=== PATIENT | male | born 1965 | race Caucasian/White ===

== ENCOUNTER 2017-07-14 23:21 | Inpatient (IN) | payer OTHER ==
[2017-07-14 23:53] LABS: BASO # 0.1 K/uL (0.0-0.2); BASO % 0.7 % (0.0-2.0); EOS # 0.2 K/uL (0.0-0.7); EOS % 2.3 % (0.0-4.0); HEMATOCRIT 42.4 % (35.0-51.0); LYMPH # 2.1 K/uL (1.0-4.3); LYMPH % 22.7 % (20.0-40.0); MEAN CELL VOLUME 89.8 fL (80.0-94.0); MEAN CORPUSCULAR HEMOGLOBIN 31.5 pg (27.0-31.0); MEAN CORPUSCULAR HGB CONC 35.1 g/dL (33.0-37.0); MEAN PLATELET VOLUME 9.5 fL (7.2-11.7); MONO # 0.8 K/uL (0.0-0.8); MONO % 8.3 % (0.0-10.0); RED CELL DISTRIBUTION WIDTH 12.9 % (11.5-14.5); WHITE BLOOD COUNT 9.1 K/uL (4.8-10.8)
[2017-07-14 23:58] LABS: INR 0.9
[2017-07-15] LABS: CHLORIDE 95 mmol/L (98-107); POTASSIUM 3.6 mmol/L (3.6-5.2); SODIUM 132 mmol/L (132-148)
[2017-07-15 00:02] LABS: BILIRUBIN,TOTAL 0.6 mg/dL (0.2-1.3); CARBON DIOXIDE 24 mmol/L (22-30); GFR AFRICAN-AMERICAN > 60
[2017-07-15 00:03] LABS: ALB/GLOB RATIO 1.1 (1.0-2.1); ALKALINE PHOSPHATASE 80 U/L (38-126); ALT/SGPT 34 U/L (21-72); BLOOD UREA NITROGEN 15 mg/dL (9-20); CALCIUM 9.5 mg/dl (8.6-10.4); TOTAL PROTEIN 8.3 g/dL (6.3-8.3)
[2017-07-15 00:04] LABS: GLUCOSE,RANDOM 445 mg/dL (75-110)
[2017-07-15] MEDS ORDERED: (Novolin R) Insulin Human Regular 100 units/ml vial IV STA ×2 (00:26→01:46)
[2017-07-15] MEDS ORDERED: Nitroglycerin 2% Ointment Foilpak UD TOP STA (00:27)
[2017-07-15 00:33] LABS: AST/SGOT 24 U/L (17-59)
[2017-07-15] MEDS ORDERED: (Novolin R) Insulin Human Regular 100 units/ml vial ONE ×2 (00:38→01:49)
[2017-07-15] MEDS ORDERED: Nitroglycerin 2% Ointment Foilpak UD TOP ONE (00:39)
--- NOTE | 2017-07-15 00:45 | C.PDOC ---
Time Seen by Provider: 07/14/17 23:30 Chief Complaint (Nursing): Chest Pain History Per: Patient, Family Onset/Duration Of Symptoms: Days (1) Current Symptoms Are (Timing): Worse Severity: Moderate Quality: Burning, Tightness, "Pain" Associated Symptoms: Diaphoresis Modifying Factors: Other Indicated Below Nitro Therapy Administered: 3, Per ED, Partial Relief Additional History Per: Prior Records Past Medical History Reviewed: Historical Data, Nursing Documentation, Vital Signs Vital Signs: Last Vital Signs Temp 98 F 07/14/17 23:25 Pulse 85 07/15/17 00:14 Resp 18 07/15/17 00:14 BP 158/97 H 07/15/17 00:14 Pulse Ox 98 07/15/17 00:48 - Medical History PMH: Diabetes, HTN, Hypercholesterolemia, Hypothyroidism Family History: States: Unknown Family Hx - Social History Hx Tobacco Use: No Hx Alcohol Use: Yes Hx Substance Use: No - Immunization History Hx Tetanus Toxoid Vaccination: No Hx Influenza Vaccination: No Hx Pneumococcal Vaccination: No Review Of Systems Except As Marked, All Systems Reviewed And Found Negative. Constitutional: Positive for: Sweats. Negative for: Fever Cardiovascular: Positive for: Chest Pain Respiratory: Negative for: Hemoptysis Gastrointestinal: Negative for: Vomiting, Abdominal Pain Musculoskeletal: Negative for: Neck Pain, Back Pain, Leg Pain Skin: Negative for: Rash Neurological: Negative for: Weakness, Numbness Physical Exam - Physical Exam Appears: In Acute Distress (mild) Skin: Normal Color, Warm, Diaphoretic Head: Atraumatic, Normacephalic Eye(s): bilateral: Normal Inspection, PERRL, EOMI Neck: Normal ROM, Supple Cardiovascular: Rhythm Regular Respiratory: Normal Breath Sounds, No Accessory Muscle Use Gastrointestinal/Abdominal: Soft, No Tenderness Back: No CVA Tenderness Extremity: Normal ROM, No Pedal Edema, No Calf Tenderness Neurological/Psych: Oriented x3, Normal Motor, Normal Sensation ED Course And Treatment - Laboratory Results Result Diagrams: 07/14/17 23:47 07/14/17 23:47 Lab Interpretation: Abnormal Interpretation Of Abnormal: Hyperglycemia ECG: Interpreted By Me, Viewed By Me ECG Rhythm: Sinus Rhythm, Nonspecific Changes Rate From EC O2 Sat by Pulse Oximetry: 98 Pulse Ox Interpretation: Normal - Radiology CXR: Interpreted by Me, Viewed By Me CXR Interpretation: Yes: No Acute Disease, Heart Size (wnl), Other (rotated) Progress - Interventions Interventions:: Observation, Oxygen - Medications Administered Oral: Aspirin Intravenous: H-2 carlin, Other (Insulin) - Data Reviewed Data Reviewed: Lab, Diagnostic imaging, EKG, Old records - Patient Status Patient status: Mostly improved - Critical Care Citical Care: Excluding Proc Time Critical Care Time: 45 minutes - Continuity of Care Discussed patient case with:: Patient, Family-HIPPA compliant, ED Nurse Disposition Counseled Patient/Family Regarding: Studies Performed, Diagnosis - Disposition Disposition Time: 01:00 Condition: GUARDED - Clinical Impression Clinical Impression: Chest pain, Uncontrolled hypertension, Uncontrolled diabetes mellitus with hyperglycemia Physician Patient Turnover Patient Signed Over To: Jose Alfredo Steen Handoff Comments: pending call back from Dr. Blackburn for admission.
--- NOTE | 2017-07-15 12:46 | RAD ---
PROCEDURE: CHEST RADIOGRAPH, 1 VIEW HISTORY: chest pain COMPARISON: None available. FINDINGS: LUNGS: No evidence of focal infiltrate or consolidation in the lungs. PLEURA: No pneumothorax or pleural fluid seen. CARDIOVASCULAR: Normal. OSSEOUS STRUCTURES: No significant abnormalities. VISUALIZED UPPER ABDOMEN: Normal. OTHER FINDINGS: None. IMPRESSION: No active disease.
[2017-07-15] MEDS ORDERED: Nitroglycerin 2% Ointment Foilpak UD TOP PRN (13:18)
--- NOTE | 2017-07-15 13:37 | CP.PCM.HP ---
History of Present Illness - History of Present Illness History of Present Illness: Chief: Chest pain. History of present illness: 50-year-old male but he still had diabetes, hypertension, hypercholesterolemia, history of hyperactive thyroidism, status post radioactive iodine treatment, now hypothyroidism on treatment. Patient started having chest pain 4 days ago, epigastric in origin, pain was persistently noted, gradually got worse until yesterday. Last night the patient was not able to tolerate the pain, the pain was epigastric in area, radiating to the chest. Also to the left shoulder. Pain was excruciating, associated with the chest tightness on the shortness of breath. Patient because of the worsening pain, came to the emergency room last night. In the emergency room, patient was evaluated, given nitroglycerin, pain relieved. Patient also had an episode of sweating, palpitation. He did not have any dizziness. Medical history: Hypothyroidism, hypertension, hypercholesteremia, diabetes. Allergy: History of allergic to methimazole. Family history: Father had a heart disease. Mother with uterine cancer. Siblings are healthy. SOCIAL HISTORY: Drinks socially. Nonsmoker. Current medications: Levothyroxine 137 g Losartan. Hydrochlorothiazide. Metformin Glimepiride. invokana Review of system: Denies any headache, chest tightness, shortness of breath, sweating noted. No GI symptoms. On examination: Vital signs stable. Chest good air entry. Regular heart tone, nontender abdomen. No pedal edema. Labs reviewed. Mild elevation of the CPK-MB noted. EKG nonspecific. Assessment at admission: 51-year-old male with a history of diabetes, hypertension, hypercholesteremia, hypothyroidism, status post iodine radiation treatment for hyperactive thyroidism. Now admitted with chest pain, unstable angina likely be I advised the patient to stay, beta blockers, aspirin, antiplatelets, DVT prophylaxis. Cardiology evaluation. Patient may need angiogram. Given the high risk patient high risk for heart disease. Will follow the patient. Present on Admission - Present on Admission Any Indicators Present on Admission: No History of DVT/PE: No History of Uncontrolled Diabetes: No Urinary Catheter: No Decubitus Ulcer Present: No Past Patient History - Past Medical History & Family History Past Medical History?: Yes - Past Social History Smoking Status: Former Smoker - CARDIAC Hx Cardiac Disorders: Yes Hx Hypercholesterolemia: Yes Hx Hypertension: Yes - PULMONARY Hx Respiratory Disorders: No - NEUROLOGICAL Hx Neurological Disorder: No - HEENT Hx HEENT Problems: No - RENAL Hx Chronic Kidney Disease: No - ENDOCRINE/METABOLIC Hx Endocrine Disorders: Yes Hx Diabetes Mellitus Type 2: Yes Hx Hypothyroidism: Yes - HEMATOLOGICAL/ONCOLOGICAL Hx Blood Disorders: No - INTEGUMENTARY Hx Dermatological Problems: No - MUSCULOSKELETAL/RHEUMATOLOGICAL Hx Musculoskeletal Disorders: No Hx Falls: No - GASTROINTESTINAL Hx Gastrointestinal Disorders: No - GENITOURINARY/GYNECOLOGICAL Hx Genitourinary Disorders: No - PSYCHIATRIC Hx Psychophysiologic Disorder: No Hx Substance Use: No - SURGICAL HISTORY Hx Surgeries: Yes Hx Appendectomy: Yes Other/Comment: nuclear med to thyroid - ANESTHESIA Hx Anesthesia: Yes Hx Anesthesia Reactions: No Hx Malignant Hyperthermia: No Has any member of the family had a problem w/ anesthesia?: No Meds Allergies/Adverse Reactions: Allergies Allergy/AdvReac Type Severity Reaction Status Date / Time No Known Allergies Allergy Unverified 07/14/17 23:29 Results - Vital Signs Recent Vital Signs: Last Vital Signs Temp 98.3 F 07/15/17 08:00 Pulse 68 07/15/17 08:00 Resp 16 07/15/17 08:00 BP 124/80 07/15/17 08:00 Pulse Ox 94 L 07/15/17 08:00 - Labs Result Diagrams: 07/14/17 23:47 07/14/17 23:47 Labs: Laboratory Results - last 24 hr 07/14/17 07/14/17 07/14/17 23:47 23:47 23:47 WBC 9.1 RBC 4.73 Hgb 14.9 Hct 42.4 MCV 89.8 MCH 31.5 H MCHC 35.1 RDW 12.9 Plt Count 223 MPV 9.5 Neut % (Auto) 66.0 Lymph % (Auto) 22.7 [place] % (Auto) 8.3 Eos % (Auto) 2.3 Baso % (Auto) 0.7 Neut # 6.0 Lymph # 2.1 [place] # 0.8 Eos # 0.2 Baso # 0.1 PT 10.4 INR 0.9 APTT 33 D-Dimer, Quantitative Sodium 132 Potassium 3.6 Chloride 95 L Carbon Dioxide 24 Anion Gap 17 BUN 15 Creatinine 0.6 L Est GFR ( Amer) > 60 Est GFR (Non-Af Amer) > 60 POC Glucose (mg/dL) Random Glucose 445 H* D Calcium 9.5 Total Bilirubin 0.6 AST 24 ALT 34 Alkaline Phosphatase 80 CK-MB (Mass) Troponin I 0.0380 NT-Pro-B Natriuret Pep 105 Total Protein 8.3 Albumin 4.4 Globulin 3.9 Albumin/Globulin Ratio 1.1 TSH 3rd Generation 07/15/17 07/15/17 07/15/17 01:43 02:22 05:22 WBC RBC Hgb Hct MCV MCH MCHC RDW Plt Count MPV Neut % (Auto) Lymph % (Auto) [place] % (Auto) Eos % (Auto) Baso % (Auto) Neut # Lymph # [place] # Eos # Baso # PT INR APTT D-Dimer, Quantitative Sodium Potassium Chloride Carbon Dioxide Anion Gap BUN Creatinine Est GFR ( Amer) Est GFR (Non-Af Amer) POC Glucose (mg/dL) 346 H 212 H 326 H Random Glucose Calcium Total Bilirubin AST ALT Alkaline Phosphatase CK-MB (Mass) Troponin I NT-Pro-B Natriuret Pep Total Protein Albumin Globulin Albumin/Globulin Ratio [facility] 3rd Generation 07/15/17 07/15/17 07/15/17 06:12 06:15 06:38 WBC RBC Hgb Hct MCV MCH MCHC RDW Plt Count MPV Neut % (Auto) Lymph % (Auto) [place] % (Auto) Eos % (Auto) Baso % (Auto) Neut # Lymph # [place] # Eos # Baso # PT INR APTT D-Dimer, Quantitative < 200 Sodium Potassium Chloride Carbon Dioxide Anion Gap BUN Creatinine Est GFR ( Amer) Est GFR (Non-Af Amer) POC Glucose (mg/dL) Random Glucose Calcium Total Bilirubin AST ALT Alkaline Phosphatase CK-MB (Mass) 10.9 H Troponin I NT-Pro-B Natriuret Pep Total Protein Albumin Globulin Albumin/Globulin Ratio [facility] 3rd Generation 12.60 H 07/15/17 07/15/17 07:30 11:56 WBC RBC Hgb Hct MCV MCH MCHC RDW Plt Count MPV Neut % (Auto) Lymph % (Auto) [place] % (Auto) Eos % (Auto) Baso % (Auto) Neut # Lymph # [place] # Eos # Baso # PT INR APTT D-Dimer, Quantitative Sodium Potassium Chloride Carbon Dioxide Anion Gap BUN Creatinine Est GFR ( Amer) Est GFR (Non-Af Amer) POC Glucose (mg/dL) 309 H 287 H Random Glucose Calcium Total Bilirubin AST ALT Alkaline Phosphatase CK-MB (Mass) Troponin I NT-Pro-B Natriuret Pep Total Protein Albumin Globulin Albumin/Globulin Ratio TSH 3rd Generation
[2017-07-15] MEDS: (Novolin R) Insulin Human Regular 100 units/ml vial SC SCH ×2 (17:09→22:28)
--- NOTE | 2017-07-15 20:09 | CP.PCM.CON ---
History of Present Illness - History of Present Illness History of Present Illness: Chief Complaint: Chest Pain History Per: Patient, Family Onset/Duration Of Symptoms: Days (1) Current Symptoms Are (Timing): Worse Severity: Moderate Quality: Burning, Tightness, "Pain" Associated Symptoms: Diaphoresis Modifying Factors: Other Indicated Below Nitro Therapy Administered: Partial Relief Additional History Per: Prior Records Past Medical History Reviewed: Historical Data, Nursing Documentation, Vital Signs Vital Signs: Last Vital Signs Temp 98 F 07/14/17 23:25 Pulse 85 07/15/17 00:14 Resp 18 07/15/17 00:14 BP 158/97 H 07/15/17 00:14 Pulse Ox 98 07/15/17 00:48 - Medical History PMH: Diabetes, HTN, Hypercholesterolemia, Hypothyroidism Family History: States: Unknown Family Hx - Social History Hx Tobacco Use: No Hx Alcohol Use: Yes Hx Substance Use: No - Immunization History Hx Tetanus Toxoid Vaccination: No Hx Influenza Vaccination: No Hx Pneumococcal Vaccination: No Review Of Systems Except As Marked, All Systems Reviewed And Found Negative. Constitutional: Positive for: Sweats. Negative for: Fever Cardiovascular: Positive for: Chest Pain Respiratory: Negative for: Hemoptysis Gastrointestinal: Negative for: Vomiting, Abdominal Pain Musculoskeletal: Negative for: Neck Pain, Back Pain, Leg Pain Skin: Negative for: Rash Neurological: Negative for: Weakness, Numbness Physical Exam - Physical Exam Appears: In Acute Distress (mild) Skin: Normal Color, Warm, Diaphoretic Head: Atraumatic, Normacephalic Eye(s): bilateral: Normal Inspection, PERRL, EOMI Neck: Normal ROM, Supple Cardiovascular: Rhythm Regular Respiratory: Normal Breath Sounds, No Accessory Muscle Use Gastrointestinal/Abdominal: Soft, No Tenderness Back: No CVA Tenderness Extremity: Normal ROM, No Pedal Edema, No Calf Tenderness Neurological/Psych: Oriented x3, Normal Motor, Normal Sensation Past Patient History - Past Medical History & Family History Past Medical History?: Yes - Past Social History Smoking Status: Former Smoker - CARDIAC Hx Cardiac Disorders: Yes Hx Hypercholesterolemia: Yes Hx Hypertension: Yes - PULMONARY Hx Respiratory Disorders: No - NEUROLOGICAL Hx Neurological Disorder: No - HEENT Hx HEENT Problems: No - RENAL Hx Chronic Kidney Disease: No - ENDOCRINE/METABOLIC Hx Endocrine Disorders: Yes Hx Diabetes Mellitus Type 2: Yes Hx Hypothyroidism: Yes - HEMATOLOGICAL/ONCOLOGICAL Hx Blood Disorders: No - INTEGUMENTARY Hx Dermatological Problems: No - MUSCULOSKELETAL/RHEUMATOLOGICAL Hx Musculoskeletal Disorders: No Hx Falls: No - GASTROINTESTINAL Hx Gastrointestinal Disorders: No - GENITOURINARY/GYNECOLOGICAL Hx Genitourinary Disorders: No - PSYCHIATRIC Hx Psychophysiologic Disorder: No Hx Substance Use: No - SURGICAL HISTORY Hx Surgeries: Yes Hx Appendectomy: Yes Other/Comment: nuclear med to thyroid - ANESTHESIA Hx Anesthesia: Yes Hx Anesthesia Reactions: No Hx Malignant Hyperthermia: No Has any member of the family had a problem w/ anesthesia?: No Meds Allergies/Adverse Reactions: Allergies Allergy/AdvReac Type Severity Reaction Status Date / Time No Known Allergies Allergy Unverified 07/14/17 23:29 - Medications Medications: Current Medications Aspirin (Ecotrin) 81 mg PO DAILY [facility] Glimepiride (Amaryl) 1 mg PO DAILY [facility] Last Admin: 07/15/17 10:03 Dose: 1 mg Heparin Sodium (Porcine) (Heparin) 5,000 units SC Q8 [facility] Hydrochlorothiazide (Microzide) 12.5 mg PO DAILY [facility] Last Admin: 07/15/17 10:03 Dose: 12.5 mg Insulin Human Regular (Novolin R) 0 unit SC ACHS [facility] PRN Reason: Protocol Last Admin: 07/15/17 17:09 Dose: 3 unit Levothyroxine Sodium (Levothroid) 137 mcg PO DAILY@0630 [facility] Last Admin: 07/15/17 06:41 Dose: 137 mcg Losartan Potassium (Cozaar) 50 mg PO DAILY [facility] Last Admin: 07/15/17 10:03 Dose: 50 mg Metoprolol Tartrate (Lopressor) 25 mg PO BID [facility] Last Admin: 07/15/17 17:10 Dose: 25 mg Nitroglycerin (Nitro-Bid 2% Oint) 1 ea TOP Q6 PRN PRN Reason: Shortness of Breath Last Admin: 07/15/17 17:58 Dose: 1 ea Rosuvastatin Calcium (Crestor) 10 mg PO HS [facility] Results - Vital Signs Recent Vital Signs: Last Vital Signs Temp 98.2 F 07/15/17 16:00 Pulse 65 07/15/17 18:00 Resp 16 07/15/17 08:00 BP 125/87 07/15/17 17:10 Pulse Ox 94 L 07/15/17 08:00 - Labs Result Diagrams: 07/14/17 23:47 07/14/17 23:47 Labs: Laboratory Results - last 24 hr 07/14/17 07/14/17 07/14/17 23:47 23:47 23:47 WBC 9.1 RBC 4.73 Hgb 14.9 Hct 42.4 MCV 89.8 MCH 31.5 H MCHC 35.1 RDW 12.9 Plt Count 223 MPV 9.5 Neut % (Auto) 66.0 Lymph % (Auto) 22.7 Long % (Auto) 8.3 Eos % (Auto) 2.3 Baso % (Auto) 0.7 Neut # 6.0 Lymph # 2.1 Long # 0.8 Eos # 0.2 Baso # 0.1 PT 10.4 INR 0.9 APTT 33 D-Dimer, Quantitative Sodium 132 Potassium 3.6 Chloride 95 L Carbon Dioxide 24 Anion Gap 17 BUN 15 Creatinine 0.6 L Est GFR ( Amer) > 60 Est GFR (Non-Af Amer) > 60 POC Glucose (mg/dL) Random Glucose 445 H* D Calcium 9.5 Total Bilirubin 0.6 AST 24 ALT 34 Alkaline Phosphatase 80 CK-MB (Mass) Troponin I 0.0380 NT-Pro-B Natriuret Pep 105 Total Protein 8.3 Albumin 4.4 Globulin 3.9 Albumin/Globulin Ratio 1.1 TSH 3rd Generation 07/15/17 07/15/17 07/15/17 01:43 02:22 05:22 WBC RBC Hgb Hct MCV MCH MCHC RDW Plt Count MPV Neut % (Auto) Lymph % (Auto) Long % (Auto) Eos % (Auto) Baso % (Auto) Neut # Lymph # Long # Eos # Baso # PT INR APTT D-Dimer, Quantitative Sodium Potassium Chloride Carbon Dioxide Anion Gap BUN Creatinine Est GFR ( Amer) Est GFR (Non-Af Amer) POC Glucose (mg/dL) 346 H 212 H 326 H Random Glucose Calcium Total Bilirubin AST ALT Alkaline Phosphatase CK-MB (Mass) Troponin I NT-Pro-B Natriuret Pep Total Protein Albumin Globulin Albumin/Globulin Ratio TSH 3rd Generation 07/15/17 07/15/17 07/15/17 06:12 06:15 06:38 WBC RBC Hgb Hct MCV MCH MCHC RDW Plt Count MPV Neut % (Auto) Lymph % (Auto) Long % (Auto) Eos % (Auto) Baso % (Auto) Neut # Lymph # Long # Eos # Baso # PT INR APTT D-Dimer, Quantitative < 200 Sodium Potassium Chloride Carbon Dioxide Anion Gap BUN Creatinine Est GFR ( Amer) Est GFR (Non-Af Amer) POC Glucose (mg/dL) Random Glucose Calcium Total Bilirubin AST ALT Alkaline Phosphatase CK-MB (Mass) 10.9 H Troponin I NT-Pro-B Natriuret Pep Total Protein Albumin Globulin Albumin/Globulin Ratio TSH 3rd Generation 12.60 H 07/15/17 07/15/17 07/15/17 07:30 11:56 16:10 WBC RBC Hgb Hct MCV MCH MCHC RDW Plt Count MPV Neut % (Auto) Lymph % (Auto) Long % (Auto) Eos % (Auto) Baso % (Auto) Neut # Lymph # Long # Eos # Baso # PT INR APTT D-Dimer, Quantitative Sodium Potassium Chloride Carbon Dioxide Anion Gap BUN Creatinine Est GFR ( Amer) Est GFR (Non-Af Amer) POC Glucose (mg/dL) 309 H 287 H 202 H Random Glucose Calcium Total Bilirubin AST ALT Alkaline Phosphatase CK-MB (Mass) Troponin I NT-Pro-B Natriuret Pep Total Protein Albumin Globulin Albumin/Globulin Ratio TSH 3rd Generation Assessment & Plan - Assessment and Plan (Free Text) Assessment: 1. Unstable angina 2. DM 2 3. HTN 4. Hyperlipidemia For cardiac cath tomorrow afternoon
[2017-07-16 08:16] LABS: BASO # 0.1 K/uL (0.0-0.2); BASO % 0.6 % (0.0-2.0); EOS # 0.2 K/uL (0.0-0.7); EOS % 1.8 % (0.0-4.0); HEMATOCRIT 42.7 % (35.0-51.0); LYMPH # 2.1 K/uL (1.0-4.3); MEAN CELL VOLUME 89.5 fL (80.0-94.0); MEAN CORPUSCULAR HEMOGLOBIN 31.3 pg (27.0-31.0); MEAN PLATELET VOLUME 9.2 fL (7.2-11.7); MONO # 0.8 K/uL (0.0-0.8); MONO % 8.5 % (0.0-10.0); RED CELL DISTRIBUTION WIDTH 13.3 % (11.5-14.5); WHITE BLOOD COUNT 8.9 K/uL (4.8-10.8)
[2017-07-16 08:30] LABS: CHLORIDE 95 mmol/L (98-107)
[2017-07-16 08:31] LABS: POTASSIUM 3.6 mmol/L (3.6-5.2); SODIUM 131 mmol/L (132-148)
[2017-07-16 08:33] LABS: ALB/GLOB RATIO 1.2 (1.0-2.1); ALKALINE PHOSPHATASE 76 U/L (38-126); AST/SGOT 34 U/L (17-59); BLOOD UREA NITROGEN 17 mg/dL (9-20); CARBON DIOXIDE 26 mmol/L (22-30); GFR AFRICAN-AMERICAN > 60; GLUCOSE,RANDOM 253 mg/dL (75-110); TOTAL PROTEIN 7.6 g/dL (6.3-8.3)
[2017-07-16 08:34] LABS: ALT/SGPT 31 U/L (21-72); CALCIUM 9.1 mg/dl (8.6-10.4); MAGNESIUM 1.7 mg/dL (1.6-2.3); PHOSPHOROUS 2.9 mg/dL (2.5-4.5)
--- NOTE | 2017-07-16 08:35 | CP.PCM.PN ---
Subjective - Date & Time of Evaluation Date of Evaluation: 07/16/17 Time of Evaluation: 08:34 - Subjective Subjective: Patient has no chest pain today. He denies any nausea vomiting. Patient was seen by environmental science professor yesterday. Review of system: No headache or visual symptom mild supporting noted, elevated blood pressure noted, other systems reviewed On examination: Vital signs stable. Chest good air entry bilaterally regular heart sounds nontender abdomen no pedal edema COURT DEPUTY alert awake oriented 3 no functional neurological deficit Labs reviewed. Cardiac enzymes are negative Echocardiogram pending Assessment and recommendation: 51-year-old male with a history of diabetes hypertension hypercholesteremia hypothyroidism. Clinical stable at this time. For angiogram today. If it is negative patient can be discharged home today. And will follow the patient. Objective - Vital Signs/Intake and Output Vital Signs (last 24 hours): Temp Pulse Resp BP Pulse Ox 97.8 F 87 19 148/99 H 99 07/16/17 08:27 07/16/17 08:27 07/16/17 08:27 07/16/17 08:27 07/16/17 08:27 Intake and Output: 07/16/17 07/16/17 06:59 18:59 Intake Total 100 Output Total 300 Balance -200 - Medications Medications: Current Medications Aspirin (Ecotrin) 81 mg PO DAILY [facility] Glimepiride (Amaryl) 1 mg PO DAILY [facility] Last Admin: 07/15/17 10:03 Dose: 1 mg Heparin Sodium (Porcine) (Heparin) 5,000 units SC Q8 [facility] Last Admin: 07/16/17 06:54 Dose: 5,000 units Hydrochlorothiazide (Microzide) 12.5 mg PO DAILY [facility] Last Admin: 07/15/17 10:03 Dose: 12.5 mg Insulin Human Regular (Novolin R) 0 unit SC ACHS [facility] PRN Reason: Protocol Last Admin: 07/15/17 22:28 Dose: Not Given Levothyroxine Sodium (Levothroid) 137 mcg PO DAILY@0630 [facility] Last Admin: 07/16/17 06:55 Dose: 137 mcg Losartan Potassium (Cozaar) 50 mg PO DAILY [facility] Last Admin: 07/15/17 10:03 Dose: 50 mg Metoprolol Tartrate (Lopressor) 25 mg PO BID [facility] Last Admin: 07/15/17 17:10 Dose: 25 mg Nitroglycerin (Nitro-Bid 2% Oint) 1 ea TOP Q6 PRN PRN Reason: Shortness of Breath Last Admin: 07/15/17 17:58 Dose: 1 ea Rosuvastatin Calcium (Crestor) 10 mg PO HS [facility] Last Admin: 07/15/17 23:00 Dose: 10 mg - Labs Labs: 07/16/17 08:02 07/16/17 08:02 PT 10.4 SECONDS (9.7-12.2) 07/14/17 23:47 INR 0.9 07/14/17 23:47 APTT 33 SECONDS (21-34) 07/14/17 23:47
[2017-07-16] MEDS: (Novolin R) Insulin Human Regular 100 units/ml vial SC SCH ×4 (10:36→21:42)
[2017-07-16] MEDS ORDERED: Midazolam 2 MG/2 ML VIAL ONE (10:55)
[2017-07-16] MEDS ORDERED: Nitroglycerin 50mg in D5W 50 MG/250 ML BOTTLE IV ONE (11:00)
[2017-07-16] MEDS ORDERED: Heparin25000 units/250ml 1/2NS 25,000 UNITS/250 ML BAG IV ONE (11:29)
[2017-07-16] MEDS ORDERED: Heparin25000 units/250ml 1/2NS 25,000 UNITS/250 ML BAG IV PRN (11:53)
--- NOTE | 2017-07-17 03:05 | CARD ---
APPROVED REPORT EXAM: Two-dimensional and M-mode echocardiogram with Doppler and color Doppler. Other Information Quality : TDSRhythm : NSR INDICATION CAD Chest Pain RISK FACTORS Hypertension Diabetes 2D DIMENSIONS IVSd1.5 (0.7-1.1cm)LVDd3.9 (3.9-5.9cm) PWd1.2 (0.7-1.1cm)LVDs2.6 (2.5-4.0cm) FS (%) 33.1 %LVEF (%)54.0 (>50%) M-Mode DIMENSIONS Left Atrium (MM)3.78 (2.5-4.0cm)Aortic Root3.03 (2.2-3.7cm) Aortic Cusp Exc.2.22 (1.5-2.0cm) Mitral Valve MV E Rkenfosp87.5cm/sMV A Jrkapycf24.1cm/sE/A ratio0.8 TDI E/Lateral E'0.0E/Medial E'0.0 Tricuspid Valve TR Peak Pjnshnhl389zj/sTR Peak Gr.[id number] LEFT VENTRICLE The left ventricle is normal size. There is mild to moderate concentric left ventricular hypertrophy. Left ventricle systolic function is normal. The Ejection Fraction is 50-55%. There is normal LV segmental wall motion. The left ventricular diastolic function is abnormal. Transmitral Doppler flow pattern is Grade I-abnormal relaxation pattern. No left ventricle thrombus noted on this study. RIGHT VENTRICLE The right ventricle is normal size. The right ventricular systolic function is normal. ATRIA The left atrial size is normal. The right atrium size is normal. AORTIC VALVE The aortic valve is mildly calcified. The aortic valve is probably trileaflet. No aortic regurgitation is present. There is no aortic valvular stenosis. There is no aortic valvular vegetation. MITRAL VALVE Mitral annular calcification is mild. The mitral valve leaflets are calcified. There is no evidence of mitral valve prolapse. There is no mitral valve stenosis. There is no mitral valve regurgitation noted. TRICUSPID VALVE The tricuspid valve is normal in structure. There is trace to mild tricuspid regurgitation. Right ventricular systolic pressure is estimated at less than 30 mmHg. There is no pulmonary hypertension. There is no tricuspid valve prolapse or vegetation. There is no tricuspid valve stenosis. PULMONIC VALVE The pulmonic valve is not well visualized. There is no pulmonic valvular regurgitation. GREAT VESSELS The aortic root is normal in size. The IVC is normal in size and collapses >50% with inspiration. PERICARDIAL EFFUSION There is no pericardial effusion. There is no pleural effusion. <Conclusion> There is mild to moderate concentric left ventricular hypertrophy. Left ventricle systolic function is normal. The Ejection Fraction is 50-55%. The left ventricular diastolic function is abnormal. The right ventricle is normal size. The right ventricular systolic function is normal. The left atrial size is normal. The right atrium size is normal. There is trace to mild tricuspid regurgitation.
[2017-07-17 06:03] LABS: BASO # 0.1 K/uL (0.0-0.2); BASO % 0.6 % (0.0-2.0); EOS # 0.2 K/uL (0.0-0.7); EOS % 1.7 % (0.0-4.0); HEMATOCRIT 38.1 % (35.0-51.0); LYMPH # 2.5 K/uL (1.0-4.3); LYMPH % 27.8 % (20.0-40.0); MEAN CELL VOLUME 88.8 fL (80.0-94.0); MEAN CORPUSCULAR HEMOGLOBIN 31.5 pg (27.0-31.0); MEAN CORPUSCULAR HGB CONC 35.4 g/dL (33.0-37.0); MEAN PLATELET VOLUME 9.2 fL (7.2-11.7); MONO # 0.7 K/uL (0.0-0.8); MONO % 8.1 % (0.0-10.0); NRBC % 0.1 % (0.0-2.0); RED CELL DISTRIBUTION WIDTH 13.1 % (11.5-14.5); WHITE BLOOD COUNT 9.2 K/uL (4.8-10.8)
[2017-07-17 06:17] LABS: CHLORIDE 97 mmol/L (98-107); POTASSIUM 3.3 mmol/L (3.6-5.2); SODIUM 132 mmol/L (132-148)
[2017-07-17 06:19] LABS: ALB/GLOB RATIO 1.2 (1.0-2.1); ALKALINE PHOSPHATASE 70 U/L (38-126); ALT/SGPT 30 U/L (21-72); AST/SGOT 22 U/L (17-59); BILIRUBIN,TOTAL 0.7 mg/dL (0.2-1.3); BLOOD UREA NITROGEN 12 mg/dL (9-20); CARBON DIOXIDE 24 mmol/L (22-30); GFR AFRICAN-AMERICAN > 60; GLUCOSE,RANDOM 212 mg/dL (75-110); TOTAL PROTEIN 6.8 g/dL (6.3-8.3)
[2017-07-17 06:20] LABS: CALCIUM 8.6 mg/dl (8.6-10.4); MAGNESIUM 1.8 mg/dL (1.6-2.3); PHOSPHOROUS 2.9 mg/dL (2.5-4.5)
[2017-07-17] MEDS ORDERED: Potassium Chloride 20 mEq ER Tab PO STA (08:40)
[2017-07-17] MEDS: (Novolin R) Insulin Human Regular 100 units/ml vial SC SCH ×4 (09:00→21:54)
[2017-07-17] MEDS ORDERED: Potassium Chloride 20 mEq ER Tab PO SCH (10:00)
--- NOTE | 2017-07-17 16:32 | CP.CCUPN ---
<Lilliam Mazariegos E - Last Filed: 07/17/17 16:26> CCU Subjective - Physician Review Subjective (Free Text): Patient was seen and examined at bedside. Patient was resting comfortably in chair. Patient states that he is doing well. Patient denies chest pain, SOB, palpitations, diaphoresis, fever, chills, nausea and vomiting. Patient is aware that he is have a PCI at [facility]. CCU Objective - Vital Signs / Intake & Output Vital Signs (Last 4 hours): Vital Signs Pulse Resp BP Pulse Ox 07/17/17 13:00 62 9 L 100 07/17/17 12:57 64 18 145/92 H 97 Intake and Output (Last 8hrs): Intake & Output 07/17/17 07/17/17 07/17/17 06:59 14:59 22:59 Intake Total 235.2 855.7 Output Total 600 1000 Balance -364.8 -144.3 Intake: Intake, IV Amount 95.2 35.7 Left Hand 95.2 35.7 Oral 140 820 Output: Urine 600 1000 Urine, Voided 600 1000 Other: # Bowel Movements 0 - Physical Exam Head: Positive for: Atraumatic, Normocephalic Extroacular Muscles: Positive for: EOMI Mouth: Positive for: Moist Mucous Membranes Respiratory/Chest: Positive for: Clear to Auscultation, Good Air Exchange. Negative for: Respiratory Distress, Accessory Muscle Use Cardiovascular: Positive for: Regular Rate and Rhythm, Normal S1, S2 Abdomen: Positive for: Normal Bowel Sounds. Negative for: Tenderness, Distention Upper Extremity: Positive for: Normal Inspection. Negative for: Edema Lower Extremity: Positive for: Normal Inspection. Negative for: Edema Neurological: Positive for: GCS=15, Speech Normal Skin: Positive for: Normal Color Psychiatric: Positive for: Alert, Oriented x 3 - Medications Active Medications: Active Medications Generic Name Dose Route Start Last Admin Trade Name Freq PRN Reason Stop Dose Admin Aspirin 81 mg 07/16/17 10:00 07/17/17 09:33 Ecotrin PO 81 mg DAILY HERB Administration Clopidogrel Bisulfate 75 mg 07/17/17 10:00 07/17/17 09:32 Plavix PO 75 mg DAILY HERB Administration Glimepiride 1 mg 07/15/17 10:00 07/17/17 10:26 Amaryl PO Not Given DAILY HERB Heparin Sodium (Porcine) 5,000 units 07/15/17 22:00 07/16/17 06:54 Heparin SC 5,000 units Q8 HERB Administration Hydrochlorothiazide 12.5 mg 07/15/17 10:00 07/17/17 09:36 Microzide PO 12.5 mg DAILY HERB Administration Heparin Sodium/Sodium Chloride 25,000 units in 250 mls @ 11.43 mls/hr 11:53 07/16/17 12:40 Heparin 48441 Units/250ml 1/2 Normal Saline IV 12.49 u/kg/hr .[id number] PRN 11.9 mls/hr PROTOCOL Administration Protocol 12 U/KG/HR Insulin Human Regular 0 unit 07/15/17 16:30 07/17/17 13:00 Novolin R SC Not Given ACHS [facility] Protocol Levothyroxine Sodium 137 mcg 07/15/17 06:30 07/17/17 08:00 Levothroid PO 137 mcg DAILY@0630 HERB Administration Losartan Potassium 50 mg 07/15/17 10:00 07/17/17 09:33 Cozaar PO 50 mg DAILY HERB Administration Metoprolol Tartrate 25 mg 07/15/17 18:00 07/17/17 09:32 Lopressor PO 25 mg BID HERB Administration Nitroglycerin 1 ea 07/15/17 13:18 07/15/17 17:58 Nitro-Bid 2% Oint TOP 1 ea Q6 PRN Administration Shortness of Breath Rosuvastatin Calcium 40 mg 07/16/17 11:53 07/16/17 21:40 Crestor PO 40 mg HS HERB Administration - Patient Studies Lab Studies: Lab Studies 07/17/17 07/17/17 07/17/17 Range/Units 13:07 11:36 07:24 WBC (4.8-10.8) K/uL RBC (4.40-5.90) Mil/uL Hgb (12.0-18.0) g/dL Hct (35.0-51.0) % MCV (80.0-94.0) fL MCH (27.0-31.0) pg MCHC (33.0-37.0) g/dL RDW (11.5-14.5) % Plt Count (130-400) K/uL MPV (7.2-11.7) fL Neut % (Auto) (50.0-75.0) % Lymph % (Auto) (20.0-40.0) % [place] % (Auto) (0.0-10.0) % Eos % (Auto) (0.0-4.0) % Baso % (Auto) (0.0-2.0) % Neut # (1.8-7.0) K/uL Lymph # (1.0-4.3) K/uL [place] # (0.0-0.8) K/uL Eos # (0.0-0.7) K/uL Baso # (0.0-0.2) K/uL APTT (21-34) SECONDS Sodium (132-148) mmol/L Potassium (3.6-5.2) mmol/L Chloride (98-107) mmol/L Carbon Dioxide (22-30) mmol/L Anion Gap (10-20) BUN (9-20) mg/dL Creatinine (0.8-1.5) mg/dL Est GFR ( Amer) Est GFR (Non-Af Amer) POC Glucose (mg/dL) 162 H 273 H 264 H (65-110) mg/dL Random Glucose (75-110) mg/dL Calcium (8.6-10.4) mg/dl Phosphorus (2.5-4.5) mg/dL Magnesium (1.6-2.3) mg/dL Total Bilirubin (0.2-1.3) mg/dL AST (17-59) U/L ALT (21-72) U/L Alkaline Phosphatase (38-126) U/L Total Protein (6.3-8.3) g/dL Albumin (3.5-5.0) g/dL Globulin (2.2-3.9) gm/dL Albumin/Globulin Ratio (1.0-2.1) 07/17/17 07/17/17 07/17/17 Range/Units 05:51 05:51 05:51 WBC 9.2 (4.8-10.8) K/uL RBC 4.28 L (4.40-5.90) Mil/uL Hgb 13.5 (12.0-18.0) g/dL Hct 38.1 (35.0-51.0) % MCV 88.8 (80.0-94.0) fL MCH 31.5 H (27.0-31.0) pg MCHC 35.4 (33.0-37.0) g/dL RDW 13.1 (11.5-14.5) % Plt Count 212 (130-400) K/uL MPV 9.2 (7.2-11.7) fL Neut % (Auto) 61.8 (50.0-75.0) % Lymph % (Auto) 27.8 (20.0-40.0) % [place] % (Auto) 8.1 (0.0-10.0) % Eos % (Auto) 1.7 (0.0-4.0) % Baso % (Auto) 0.6 (0.0-2.0) % Neut # 5.7 (1.8-7.0) K/uL Lymph # 2.5 (1.0-4.3) K/uL [place] # 0.7 (0.0-0.8) K/uL Eos # 0.2 (0.0-0.7) K/uL Baso # 0.1 (0.0-0.2) K/uL APTT 85 H D (21-34) SECONDS Sodium 132 (132-148) mmol/L Potassium 3.3 L (3.6-5.2) mmol/L Chloride 97 L (98-107) mmol/L Carbon Dioxide 24 (22-30) mmol/L Anion Gap 14 (10-20) BUN 12 (9-20) mg/dL Creatinine 0.6 L (0.8-1.5) mg/dL Est GFR ( Amer) > 60 Est GFR (Non-Af Amer) > 60 POC Glucose (mg/dL) (65-110) mg/dL Random Glucose 212 H (75-110) mg/dL Calcium 8.6 (8.6-10.4) mg/dl Phosphorus 2.9 (2.5-4.5) mg/dL Magnesium 1.8 (1.6-2.3) mg/dL Total Bilirubin 0.7 (0.2-1.3) mg/dL AST 22 (17-59) U/L ALT 30 (21-72) U/L Alkaline Phosphatase 70 (38-126) U/L Total Protein 6.8 (6.3-8.3) g/dL Albumin 3.7 (3.5-5.0) g/dL Globulin 3.1 (2.2-3.9) gm/dL Albumin/Globulin Ratio 1.2 (1.0-2.1) 07/17/17 07/16/17 Range/Units 00:23 21:09 WBC (4.8-10.8) K/uL RBC (4.40-5.90) Mil/uL Hgb (12.0-18.0) g/dL Hct (35.0-51.0) % MCV (80.0-94.0) fL MCH (27.0-31.0) pg MCHC (33.0-37.0) g/dL RDW (11.5-14.5) % Plt Count (130-400) K/uL MPV (7.2-11.7) fL Neut % (Auto) (50.0-75.0) % Lymph % (Auto) (20.0-40.0) % [place] % (Auto) (0.0-10.0) % Eos % (Auto) (0.0-4.0) % Baso % (Auto) (0.0-2.0) % Neut # (1.8-7.0) K/uL Lymph # (1.0-4.3) K/uL [place] # (0.0-0.8) K/uL Eos # (0.0-0.7) K/uL Baso # (0.0-0.2) K/uL APTT 78 H D (21-34) SECONDS Sodium (132-148) mmol/L Potassium (3.6-5.2) mmol/L Chloride (98-107) mmol/L Carbon Dioxide (22-30) mmol/L Anion Gap (10-20) BUN (9-20) mg/dL Creatinine (0.8-1.5) mg/dL Est GFR ( Amer) Est GFR (Non-Af Amer) POC Glucose (mg/dL) 241 H (65-110) mg/dL Random Glucose (75-110) mg/dL Calcium (8.6-10.4) mg/dl Phosphorus (2.5-4.5) mg/dL Magnesium (1.6-2.3) mg/dL Total Bilirubin (0.2-1.3) mg/dL AST (17-59) U/L ALT (21-72) U/L Alkaline Phosphatase (38-126) U/L Total Protein (6.3-8.3) g/dL Albumin (3.5-5.0) g/dL Globulin (2.2-3.9) gm/dL Albumin/Globulin Ratio (1.0-2.1) Laboratory Results - last 24 hr 07/16/17 07/17/17 07/17/17 21:09 00:23 05:51 WBC 9.2 RBC 4.28 L Hgb 13.5 Hct 38.1 MCV 88.8 MCH 31.5 H MCHC 35.4 RDW 13.1 Plt Count 212 MPV 9.2 Neut % (Auto) 61.8 Lymph % (Auto) 27.8 [place] % (Auto) 8.1 Eos % (Auto) 1.7 Baso % (Auto) 0.6 Neut # 5.7 Lymph # 2.5 [place] # 0.7 Eos # 0.2 Baso # 0.1 APTT 78 H D Sodium Potassium Chloride Carbon Dioxide Anion Gap BUN Creatinine Est GFR ( Amer) Est GFR (Non-Af Amer) POC Glucose (mg/dL) 241 H Random Glucose Calcium Phosphorus Magnesium Total Bilirubin AST ALT Alkaline Phosphatase Total Protein Albumin Globulin Albumin/Globulin Ratio 07/17/17 07/17/17 07/17/17 05:51 05:51 07:24 WBC RBC Hgb Hct MCV MCH MCHC RDW Plt Count MPV Neut % (Auto) Lymph % (Auto) [place] % (Auto) Eos % (Auto) Baso % (Auto) Neut # Lymph # [place] # Eos # Baso # APTT 85 H D Sodium 132 Potassium 3.3 L Chloride 97 L Carbon Dioxide 24 Anion Gap 14 BUN 12 Creatinine 0.6 L Est GFR ( Amer) > 60 Est GFR (Non-Af Amer) > 60 POC Glucose (mg/dL) 264 H Random Glucose 212 H Calcium 8.6 Phosphorus 2.9 Magnesium 1.8 Total Bilirubin 0.7 AST 22 ALT 30 Alkaline Phosphatase 70 Total Protein 6.8 Albumin 3.7 Globulin 3.1 Albumin/Globulin Ratio 1.2 07/17/17 07/17/17 11:36 13:07 WBC RBC Hgb Hct MCV MCH MCHC RDW Plt Count MPV Neut % (Auto) Lymph % (Auto) [place] % (Auto) Eos % (Auto) Baso % (Auto) Neut # Lymph # [place] # Eos # Baso # APTT Sodium Potassium Chloride Carbon Dioxide Anion Gap BUN Creatinine Est GFR ( Amer) Est GFR (Non-Af Amer) POC Glucose (mg/dL) 273 H 162 H Random Glucose Calcium Phosphorus Magnesium Total Bilirubin AST ALT Alkaline Phosphatase Total Protein Albumin Globulin Albumin/Globulin Ratio Fingerstick Blood Sugar Results: 162 Review of Systems - Constitutional Constitutional: absent: Fever, Chills, Sweats, Weakness - EENT Eyes: absent: Blurred Vision, Change in Vision Ears: absent: Dizziness - Cardiovascular Cardiovascular: absent: Chest Pain, Chest Pain at Rest, Lightheadedness, Palpitations, Syncope - Respiratory Respiratory: absent: Dyspnea - Gastrointestinal Gastrointestinal: absent: Abdominal Pain, Cramping, Nausea, Vomiting - Musculoskeletal Musculoskeletal: absent: Numbness, Tingling - Neurological Neurological: absent: Dizziness, Headaches, Syncope, Tingling, Weakness - Endocrine Endocrine: absent: Fatigue, Palpitations Critical Care Progress Note - Nutrition Nutrition: Nutrition Category Date Time Status NPO Diet [DIET] Diets 07/17/17 Lunch Active Assessment/Plan - Assessment and Plan (Free Text) Assessment: Patient is a 51 year old male with past medical history of of diabetes, hypertension, HLD and hyperthyroidism (s/p radioactive iodine treatment), now hypothyroidism who presented with chest pain for 4 days that gradually worsened and associated with shortness of breath, palpitation, diaphoresis. Patient had a cardiac catherization (07/16/17) and was found to have a triple-vessel disease. Today: Plan: PCI at [facility] Plan: Neuro: Alert, awake and oriented Cardio: Unstable angina, Hx of HTN and HLD Microbiology Coordinator, Dr. Venegas on board----> Help appreciated * Cardiac cath (07/16/17): Noted to have a triple-vessel disease. * Plan for PCI at [facility] ([place]17/17) Medication/Management: * Nitroglycerin 2% 1 ea top Q6 PRN * Lopressor 25mg PO BID * Aspirin 81mg PO daily * Crestor 40mg PO HS * Plavix 75mg PO daily * Cozaar 50mg PO daily * HCTZ 12.5mg PO daily * Heparin Drip Pulm: No acute issues GI: No acute issues Endo: Hx of Diabetes Medication/Management: * Accuchecks * Glimepiride 1mg PO daily * ISS medium dose protocol Prophylaxis: DVT: Ambulating, heparin drip GI: Not indicated <Jacob Marie P - Last Filed: 07/17/17 18:18> CCU Objective - Vital Signs / Intake & Output Intake and Output (Last 8hrs): Intake & Output 07/17/17 07/17/17 07/17/17 06:59 14:59 22:59 Intake Total 235.2 855.7 Output Total 600 1000 Balance -364.8 -144.3 Intake: Intake, IV Amount 95.2 35.7 Left Hand 95.2 35.7 Oral 140 820 Output: Urine 600 1000 Urine, Voided 600 1000 Other: # Bowel Movements 0 - Medications Active Medications: Active Medications Generic Name Dose Route Start Last Admin Trade Name Freq PRN Reason Stop Dose Admin Acetaminophen 650 mg 07/17/17 16:45 Tylenol 325mg Tab PO Q6 PRN Pain, Mild (1-3) Aspirin 81 mg 07/16/17 10:00 07/17/17 09:33 Ecotrin PO 81 mg DAILY HERB Administration Clopidogrel Bisulfate 75 mg 07/17/17 10:00 07/17/17 09:32 Plavix PO 75 mg DAILY HERB Administration Enoxaparin Sodium 40 mg 07/18/17 10:00 Lovenox SC DAILY [facility] Famotidine 20 mg 07/18/17 10:00 Pepcid PO DAILY HERB Glimepiride 1 mg 07/15/17 10:00 07/17/17 10:26 Amaryl PO Not Given DAILY HERB Hydrochlorothiazide 12.5 mg 07/15/17 10:00 07/17/17 09:36 Microzide PO 12.5 mg DAILY HERB Administration Sodium Chloride 1,000 mls @ 80 mls/hr 07/17/17 17:00 07/17/17 17:12 Sodium Chloride 0.45% IV 07/18/17 23:59 Not Given .[id number] [facility] Insulin Human Regular 0 unit 07/15/17 16:30 07/17/17 17:10 Novolin R SC Not Given ACHS [facility] Protocol Levothyroxine Sodium 137 mcg 07/15/17 06:30 07/17/17 08:00 Levothroid PO 137 mcg DAILY@0630 HERB Administration Losartan Potassium 50 mg 07/15/17 10:00 07/17/17 09:33 Cozaar PO 50 mg DAILY HERB Administration Metoprolol Tartrate 25 mg 07/15/17 18:00 07/17/17 09:32 Lopressor PO 25 mg BID HERB Administration Nitroglycerin 1 ea 07/15/17 13:18 07/15/17 17:58 Nitro-Bid 2% Oint TOP 1 ea Q6 PRN Administration Shortness of Breath Rosuvastatin Calcium 40 mg 07/16/17 11:53 07/16/17 21:40 Crestor PO 40 mg HS HERB Administration - Patient Studies Lab Studies: Lab Studies 07/17/17 07/17/17 07/17/17 Range/Units 13:07 11:36 07:24 WBC (4.8-10.8) K/uL RBC (4.40-5.90) Mil/uL Hgb (12.0-18.0) g/dL Hct (35.0-51.0) % MCV (80.0-94.0) fL MCH (27.0-31.0) pg MCHC (33.0-37.0) g/dL RDW (11.5-14.5) % Plt Count (130-400) K/uL MPV (7.2-11.7) fL Neut % (Auto) (50.0-75.0) % Lymph % (Auto) (20.0-40.0) % [place] % (Auto) (0.0-10.0) % Eos % (Auto) (0.0-4.0) % Baso % (Auto) (0.0-2.0) % Neut # (1.8-7.0) K/uL Lymph # (1.0-4.3) K/uL [place] # (0.0-0.8) K/uL Eos # (0.0-0.7) K/uL Baso # (0.0-0.2) K/uL APTT (21-34) SECONDS Sodium (132-148) mmol/L Potassium (3.6-5.2) mmol/L Chloride (98-107) mmol/L Carbon Dioxide (22-30) mmol/L Anion Gap (10-20) BUN (9-20) mg/dL Creatinine (0.8-1.5) mg/dL Est GFR ( Amer) Est GFR (Non-Af Amer) POC Glucose (mg/dL) 162 H 273 H 264 H (65-110) mg/dL Random Glucose (75-110) mg/dL Calcium (8.6-10.4) mg/dl Phosphorus (2.5-4.5) mg/dL Magnesium (1.6-2.3) mg/dL Total Bilirubin (0.2-1.3) mg/dL AST (17-59) U/L ALT (21-72) U/L Alkaline Phosphatase (38-126) U/L Total Protein (6.3-8.3) g/dL Albumin (3.5-5.0) g/dL Globulin (2.2-3.9) gm/dL Albumin/Globulin Ratio (1.0-2.1) 07/17/17 07/17/17 07/17/17 Range/Units 05:51 05:51 05:51 WBC 9.2 (4.8-10.8) K/uL RBC 4.28 L (4.40-5.90) Mil/uL Hgb 13.5 (12.0-18.0) g/dL Hct 38.1 (35.0-51.0) % MCV 88.8 (80.0-94.0) fL MCH 31.5 H (27.0-31.0) pg MCHC 35.4 (33.0-37.0) g/dL RDW 13.1 (11.5-14.5) % Plt Count 212 (130-400) K/uL MPV 9.2 (7.2-11.7) fL Neut % (Auto) 61.8 (50.0-75.0) % Lymph % (Auto) 27.8 (20.0-40.0) % [place] % (Auto) 8.1 (0.0-10.0) % Eos % (Auto) 1.7 (0.0-4.0) % Baso % (Auto) 0.6 (0.0-2.0) % Neut # 5.7 (1.8-7.0) K/uL Lymph # 2.5 (1.0-4.3) K/uL [place] # 0.7 (0.0-0.8) K/uL Eos # 0.2 (0.0-0.7) K/uL Baso # 0.1 (0.0-0.2) K/uL APTT 85 H D (21-34) SECONDS Sodium 132 (132-148) mmol/L Potassium 3.3 L (3.6-5.2) mmol/L Chloride 97 L (98-107) mmol/L Carbon Dioxide 24 (22-30) mmol/L Anion Gap 14 (10-20) BUN 12 (9-20) mg/dL Creatinine 0.6 L (0.8-1.5) mg/dL Est GFR ( Amer) > 60 Est GFR (Non-Af Amer) > 60 POC Glucose (mg/dL) (65-110) mg/dL Random Glucose 212 H (75-110) mg/dL Calcium 8.6 (8.6-10.4) mg/dl Phosphorus 2.9 (2.5-4.5) mg/dL Magnesium 1.8 (1.6-2.3) mg/dL Total Bilirubin 0.7 (0.2-1.3) mg/dL AST 22 (17-59) U/L ALT 30 (21-72) U/L Alkaline Phosphatase 70 (38-126) U/L Total Protein 6.8 (6.3-8.3) g/dL Albumin 3.7 (3.5-5.0) g/dL Globulin 3.1 (2.2-3.9) gm/dL Albumin/Globulin Ratio 1.2 (1.0-2.1) 07/17/17 07/16/17 Range/Units 00:23 21:09 WBC (4.8-10.8) K/uL RBC (4.40-5.90) Mil/uL Hgb (12.0-18.0) g/dL Hct (35.0-51.0) % MCV (80.0-94.0) fL MCH (27.0-31.0) pg MCHC (33.0-37.0) g/dL RDW (11.5-14.5) % Plt Count (130-400) K/uL MPV (7.2-11.7) fL Neut % (Auto) (50.0-75.0) % Lymph % (Auto) (20.0-40.0) % [place] % (Auto) (0.0-10.0) % Eos % (Auto) (0.0-4.0) % Baso % (Auto) (0.0-2.0) % Neut # (1.8-7.0) K/uL Lymph # (1.0-4.3) K/uL [place] # (0.0-0.8) K/uL Eos # (0.0-0.7) K/uL Baso # (0.0-0.2) K/uL APTT 78 H D (21-34) SECONDS Sodium (132-148) mmol/L Potassium (3.6-5.2) mmol/L Chloride (98-107) mmol/L Carbon Dioxide (22-30) mmol/L Anion Gap (10-20) BUN (9-20) mg/dL Creatinine (0.8-1.5) mg/dL Est GFR ( Amer) Est GFR (Non-Af Amer) POC Glucose (mg/dL) 241 H (65-110) mg/dL Random Glucose (75-110) mg/dL Calcium (8.6-10.4) mg/dl Phosphorus (2.5-4.5) mg/dL Magnesium (1.6-2.3) mg/dL Total Bilirubin (0.2-1.3) mg/dL AST (17-59) U/L ALT (21-72) U/L Alkaline Phosphatase (38-126) U/L Total Protein (6.3-8.3) g/dL Albumin (3.5-5.0) g/dL Globulin (2.2-3.9) gm/dL Albumin/Globulin Ratio (1.0-2.1) Laboratory Results - last 24 hr 07/16/17 07/17/17 07/17/17 21:09 00:23 05:51 WBC 9.2 RBC 4.28 L Hgb 13.5 Hct 38.1 MCV 88.8 MCH 31.5 H MCHC 35.4 RDW 13.1 Plt Count 212 MPV 9.2 Neut % (Auto) 61.8 Lymph % (Auto) 27.8 [place] % (Auto) 8.1 Eos % (Auto) 1.7 Baso % (Auto) 0.6 Neut # 5.7 Lymph # 2.5 [place] # 0.7 Eos # 0.2 Baso # 0.1 APTT 78 H D Sodium Potassium Chloride Carbon Dioxide Anion Gap BUN Creatinine Est GFR ( Amer) Est GFR (Non-Af Amer) POC Glucose (mg/dL) 241 H Random Glucose Calcium Phosphorus Magnesium Total Bilirubin AST ALT Alkaline Phosphatase Total Protein Albumin Globulin Albumin/Globulin Ratio 07/17/17 07/17/17 07/17/17 05:51 05:51 07:24 WBC RBC Hgb Hct MCV MCH MCHC RDW Plt Count MPV Neut % (Auto) Lymph % (Auto) [place] % (Auto) Eos % (Auto) Baso % (Auto) Neut # Lymph # [place] # Eos # Baso # APTT 85 H D Sodium 132 Potassium 3.3 L Chloride 97 L Carbon Dioxide 24 Anion Gap 14 BUN 12 Creatinine 0.6 L Est GFR ( Amer) > 60 Est GFR (Non-Af Amer) > 60 POC Glucose (mg/dL) 264 H Random Glucose 212 H Calcium 8.6 Phosphorus 2.9 Magnesium 1.8 Total Bilirubin 0.7 AST 22 ALT 30 Alkaline Phosphatase 70 Total Protein 6.8 Albumin 3.7 Globulin 3.1 Albumin/Globulin Ratio 1.2 07/17/17 07/17/17 11:36 13:07 WBC RBC Hgb Hct MCV MCH MCHC RDW Plt Count MPV Neut % (Auto) Lymph % (Auto) [place] % (Auto) Eos % (Auto) Baso % (Auto) Neut # Lymph # [place] # Eos # Baso # APTT Sodium Potassium Chloride Carbon Dioxide Anion Gap BUN Creatinine Est GFR ( Amer) Est GFR (Non-Af Amer) POC Glucose (mg/dL) 273 H 162 H Random Glucose Calcium Phosphorus Magnesium Total Bilirubin AST ALT Alkaline Phosphatase Total Protein Albumin Globulin Albumin/Globulin Ratio Critical Care Progress Note - Nutrition Nutrition: Nutrition Category Date Time Status Heart Healthy Diet [DIET] Diets 07/17/17 Dinner Active Attending/Attestation - Attestation I have personally seen and examined this patient.: Yes I have fully participated in the care of the patient.: Yes I have reviewed all pertinent clinical information: Yes Notes (Text): Patient presented with CP, htn urgency, uncontrolled dm, had positive troponin and 3 vessel disease, has gone for cath to [facility] will come back post cath. Patient was symptom free today and VS maintained.
--- NOTE | 2017-07-17 16:51 | CP.PCM.PN ---
Subjective - Date & Time of Evaluation Date of Evaluation: 07/17/17 Time of Evaluation: 16:48 - Subjective Subjective: Patient s/p RCA and L Cx Drug eluting stents with successful results PCI of LAD after 1-2 weeks IV Hydration Ambulate after 9pm today Plavix 75 daily for 1 year ASA 81, Statins, b blockers and DAVID I for life Possible discharge tomorrow with OP follow up with Drs. Blackburn and Theo in 1- 2 weeks Objective - Vital Signs/Intake and Output Vital Signs (last 24 hours): Temp Pulse Resp BP Pulse Ox 97.4 F L 62 9 L 145/92 H 100 07/17/17 12:00 07/17/17 13:00 07/17/17 13:00 07/17/17 12:57 07/17/17 13:00 Intake and Output: 07/17/17 07/17/17 06:59 18:59 Intake Total 750.9 855.7 Output Total 1000 1000 Balance -249.1 -144.3 - Medications Medications: Current Medications Acetaminophen (Tylenol 325mg Tab) 650 mg PO Q6 PRN PRN Reason: Pain, Mild (1-3) Aspirin (Ecotrin) 81 mg PO DAILY [facility] Last Admin: 07/17/17 09:33 Dose: 81 mg Clopidogrel Bisulfate (Plavix) 75 mg PO DAILY [facility] Last Admin: 07/17/17 09:32 Dose: 75 mg Enoxaparin Sodium (Lovenox) 40 mg SC DAILY [facility] Famotidine (Pepcid) 20 mg PO DAILY [facility] Glimepiride (Amaryl) 1 mg PO DAILY [facility] Last Admin: 07/17/17 10:26 Dose: Not Given Hydrochlorothiazide (Microzide) 12.5 mg PO DAILY [facility] Last Admin: 07/17/17 09:36 Dose: 12.5 mg Sodium Chloride (Sodium Chloride 0.45%) 1,000 mls @ 80 mls/hr IV .[id number] [facility] Stop: 07/18/17 23:59 Insulin Human Regular (Novolin R) 0 unit SC ACHS [facility] PRN Reason: Protocol Last Admin: 07/17/17 13:00 Dose: Not Given Levothyroxine Sodium (Levothroid) 137 mcg PO DAILY@0630 [facility] Last Admin: 07/17/17 08:00 Dose: 137 mcg Losartan Potassium (Cozaar) 50 mg PO DAILY [facility] Last Admin: 07/17/17 09:33 Dose: 50 mg Metoprolol Tartrate (Lopressor) 25 mg PO BID [facility] Last Admin: 07/17/17 09:32 Dose: 25 mg Nitroglycerin (Nitro-Bid 2% Oint) 1 ea TOP Q6 PRN PRN Reason: Shortness of Breath Last Admin: 07/15/17 17:58 Dose: 1 ea Rosuvastatin Calcium (Crestor) 40 mg PO HS [facility] Last Admin: 07/16/17 21:40 Dose: 40 mg - Labs Labs: 07/17/17 05:51 07/17/17 05:51 PT 10.4 SECONDS (9.7-12.2) 07/14/17 23:47 INR 0.9 07/14/17 23:47 APTT 85 SECONDS (21-34) H D 07/17/17 05:51
[2017-07-17] MEDS: Sodium Chloride 0.45% 1,000 ML IV SCH ×2 (17:12→20:28)
--- NOTE | 2017-07-17 19:26 | CP.PCM.PN ---
Subjective - Date & Time of Evaluation Date of Evaluation: 07/17/17 Time of Evaluation: 19:26 - Subjective Subjective: He is clinically stable He will underwent elective stenting placement. Clinical stable. No chest pain. Seen by cardiology. He will be possible discharge home tomorrow Objective - Vital Signs/Intake and Output Vital Signs (last 24 hours): Temp Pulse Resp BP Pulse Ox 97.4 F L 62 9 L 145/92 H 100 07/17/17 12:00 07/17/17 13:00 07/17/17 13:00 07/17/17 12:57 07/17/17 13:00 Intake and Output: 07/17/17 07/18/17 18:59 06:59 Intake Total 855.7 Output Total 1000 Balance -144.3 - Medications Medications: Current Medications Acetaminophen (Tylenol 325mg Tab) 650 mg PO Q6 PRN PRN Reason: Pain, Mild (1-3) Aspirin (Ecotrin) 81 mg PO DAILY [facility] Last Admin: 07/17/17 09:33 Dose: 81 mg Clopidogrel Bisulfate (Plavix) 75 mg PO DAILY [facility] Last Admin: 07/17/17 09:32 Dose: 75 mg Enoxaparin Sodium (Lovenox) 40 mg SC DAILY [facility] Famotidine (Pepcid) 20 mg PO DAILY [facility] Glimepiride (Amaryl) 1 mg PO DAILY [facility] Last Admin: 07/17/17 10:26 Dose: Not Given Hydrochlorothiazide (Microzide) 12.5 mg PO DAILY [facility] Last Admin: 07/17/17 09:36 Dose: 12.5 mg Sodium Chloride (Sodium Chloride 0.45%) 1,000 mls @ 80 mls/hr IV .[id number] [facility] Stop: 07/18/17 23:59 Last Admin: 07/17/17 17:12 Dose: Not Given Insulin Human Regular (Novolin R) 0 unit SC ACHS [facility] PRN Reason: Protocol Last Admin: 07/17/17 17:10 Dose: Not Given Levothyroxine Sodium (Levothroid) 137 mcg PO DAILY@0630 [facility] Last Admin: 07/17/17 08:00 Dose: 137 mcg Losartan Potassium (Cozaar) 50 mg PO DAILY [facility] Last Admin: 07/17/17 09:33 Dose: 50 mg Metoprolol Tartrate (Lopressor) 25 mg PO BID [facility] Last Admin: 07/17/17 09:32 Dose: 25 mg Nitroglycerin (Nitro-Bid 2% Oint) 1 ea TOP Q6 PRN PRN Reason: Shortness of Breath Last Admin: 07/15/17 17:58 Dose: 1 ea Rosuvastatin Calcium (Crestor) 40 mg PO HS [facility] Last Admin: 07/16/17 21:40 Dose: 40 mg - Labs Labs: 07/17/17 05:51 07/17/17 05:51 PT 10.4 SECONDS (9.7-12.2) 07/14/17 23:47 INR 0.9 07/14/17 23:47 APTT 85 SECONDS (21-34) H D 07/17/17 05:51
[2017-07-18] MEDS: Sodium Chloride 0.45% 1,000 ML IV SCH (05:48)
[2017-07-18 06:40] LABS: CHLORIDE 100 mmol/L (98-107); SODIUM 133 mmol/L (132-148)
[2017-07-18 06:40] LABS: BASO # 0.1 K/uL (0.0-0.2); BASO % 0.7 % (0.0-2.0); EOS # 0.1 K/uL (0.0-0.7); EOS % 1.6 % (0.0-4.0); HEMATOCRIT 39.1 % (35.0-51.0); LYMPH # 2.1 K/uL (1.0-4.3); LYMPH % 23.7 % (20.0-40.0); MEAN CELL VOLUME 89.1 fL (80.0-94.0); MEAN CORPUSCULAR HEMOGLOBIN 31.3 pg (27.0-31.0); MEAN CORPUSCULAR HGB CONC 35.1 g/dL (33.0-37.0); MEAN PLATELET VOLUME 9.2 fL (7.2-11.7); MONO # 0.9 K/uL (0.0-0.8); MONO % 9.8 % (0.0-10.0); RED CELL DISTRIBUTION WIDTH 13.6 % (11.5-14.5); WHITE BLOOD COUNT 8.7 K/uL (4.8-10.8)
[2017-07-18 06:41] LABS: POTASSIUM 3.5 mmol/L (3.6-5.2)
[2017-07-18 06:43] LABS: ALKALINE PHOSPHATASE 63 U/L (38-126); AST/SGOT 22 U/L (17-59); BILIRUBIN,TOTAL 0.7 mg/dL (0.2-1.3); BLOOD UREA NITROGEN 10 mg/dL (9-20); CARBON DIOXIDE 23 mmol/L (22-30); GFR AFRICAN-AMERICAN > 60; GLUCOSE,RANDOM 159 mg/dL (75-110); PHOSPHOROUS 3.2 mg/dL (2.5-4.5); TOTAL PROTEIN 7.4 g/dL (6.3-8.3)
[2017-07-18 06:44] LABS: ALT/SGPT 34 U/L (21-72); CALCIUM 9.1 mg/dl (8.6-10.4); MAGNESIUM 1.8 mg/dL (1.6-2.3)
[2017-07-18] MEDS: (Novolin R) Insulin Human Regular 100 units/ml vial SC SCH ×3 (09:26→17:14)
[2017-07-18] MEDS ORDERED: Enoxaparin 40 mg Syringe SC SCH (10:00)
[2017-07-18 11:53] VITALS: BP 137/95; PULSE 63; RESP 11
--- NOTE | 2017-07-18 13:49 | CP.CCUPN ---
<Lilliam Mazariegos E - Last Filed: 07/18/17 16:20> CCU Subjective - Physician Review Subjective (Free Text): Patient was seen and examined at bedside. Patient was sitting comfortably in bed for breakfast. Patient states that he is doing well. Patient denies chest pain, SOB, palpitations, diaphoresis, fever, chills, nausea and vomiting. Patient states that he has no complaints. CCU Objective - Vital Signs / Intake & Output Vital Signs (Last 4 hours): Vital Signs Pulse Resp BP Pulse Ox 07/18/17 11:50 63 11 L 137/95 H 98 07/18/17 11:00 75 15 99 07/18/17 10:50 71 14 134/91 H 96 07/18/17 10:00 61 13 95 07/18/17 09:50 62 15 123/79 95 Intake and Output (Last 8hrs): Intake & Output 07/17/17 07/18/17 07/18/17 22:59 06:59 14:59 Intake Total 470 640 900 Output Total 600 400 900 Balance -130 240 0 Intake: Intake, IV Amount 320 640 480 Left Hand 320 640 480 Oral 150 420 Output: Urine 600 400 900 Urine, Voided 600 400 900 Stool 0 Emesis 0 Other: # Voids Urine, Voided 1 # Bowel Movements 0 - Physical Exam Head: Positive for: Atraumatic, Normocephalic Extroacular Muscles: Positive for: EOMI Mouth: Positive for: Moist Mucous Membranes Respiratory/Chest: Positive for: Clear to Auscultation, Good Air Exchange. Negative for: Respiratory Distress, Accessory Muscle Use Cardiovascular: Positive for: Regular Rate and Rhythm, Normal S1, S2 Abdomen: Positive for: Normal Bowel Sounds. Negative for: Tenderness, Distention Upper Extremity: Positive for: Normal Inspection. Negative for: Edema Lower Extremity: Positive for: Normal Inspection, Other (Right groin for Cardiac catherization access C/D/I and no hematoma or bruit). Negative for: Edema Neurological: Positive for: GCS=15, Speech Normal Skin: Positive for: Normal Color Psychiatric: Positive for: Alert, Oriented x 3 - Medications Active Medications: Active Medications Generic Name Dose Route Start Last Admin Trade Name Freq PRN Reason Stop Dose Admin Acetaminophen 650 mg 07/17/17 16:45 Tylenol 325mg Tab PO Q6 PRN Pain, Mild (1-3) Aspirin 81 mg 07/16/17 10:00 07/18/17 09:25 Ecotrin PO 81 mg DAILY HERB Administration Clopidogrel Bisulfate 75 mg 07/17/17 10:00 07/18/17 09:24 Plavix PO 75 mg DAILY HERB Administration Enoxaparin Sodium 40 mg 07/18/17 10:00 07/18/17 09:24 Lovenox SC 40 mg DAILY HERB Administration Famotidine 20 mg 07/18/17 10:00 07/18/17 09:24 Pepcid PO 20 mg DAILY HERB Administration Glimepiride 1 mg 07/15/17 10:00 07/18/17 10:39 Amaryl PO 1 mg DAILY HERB Administration Hydrochlorothiazide 12.5 mg 07/15/17 10:00 07/18/17 10:39 Microzide PO 12.5 mg DAILY HERB Administration Insulin Human Regular 0 unit 07/15/17 16:30 07/18/17 13:08 Novolin R SC 4 unit ACHS HERB Administration Protocol Levothyroxine Sodium 137 mcg 07/15/17 06:30 07/18/17 05:46 Levothroid PO 137 mcg DAILY@0630 HERB Administration Losartan Potassium 50 mg 07/15/17 10:00 07/18/17 09:25 Cozaar PO 50 mg DAILY HERB Administration Metoprolol Tartrate 25 mg 07/15/17 18:00 07/18/17 09:24 Lopressor PO 25 mg BID HERB Administration Nitroglycerin 1 ea 07/15/17 13:18 07/15/17 17:58 Nitro-Bid 2% Oint TOP 1 ea Q6 PRN Administration Shortness of Breath Rosuvastatin Calcium 40 mg 07/16/17 11:53 07/17/17 21:53 Crestor PO 40 mg HS HERB Administration - Patient Studies Lab Studies: Lab Studies 07/18/17 07/18/17 07/18/17 Range/Units 11:25 07:15 06:19 WBC (4.8-10.8) K/uL RBC (4.40-5.90) Mil/uL Hgb (12.0-18.0) g/dL Hct (35.0-51.0) % MCV (80.0-94.0) fL MCH (27.0-31.0) pg MCHC (33.0-37.0) g/dL RDW (11.5-14.5) % Plt Count (130-400) K/uL MPV (7.2-11.7) fL Neut % (Auto) (50.0-75.0) % Lymph % (Auto) (20.0-40.0) % [place] % (Auto) (0.0-10.0) % Eos % (Auto) (0.0-4.0) % Baso % (Auto) (0.0-2.0) % Neut # (1.8-7.0) K/uL Lymph # (1.0-4.3) K/uL [place] # (0.0-0.8) K/uL Eos # (0.0-0.7) K/uL Baso # (0.0-0.2) K/uL Sodium 133 (132-148) mmol/L Potassium 3.5 L (3.6-5.2) mmol/L Chloride 100 (98-107) mmol/L Carbon Dioxide 23 (22-30) mmol/L Anion Gap 14 (10-20) BUN 10 (9-20) mg/dL Creatinine 0.5 L (0.8-1.5) mg/dL Est GFR ( Amer) > 60 Est GFR (Non-Af Amer) > 60 POC Glucose (mg/dL) 252 H 176 H (65-110) mg/dL Random Glucose 159 H (75-110) mg/dL Calcium 9.1 (8.6-10.4) mg/dl Phosphorus 3.2 (2.5-4.5) mg/dL Magnesium 1.8 (1.6-2.3) mg/dL Total Bilirubin 0.7 (0.2-1.3) mg/dL AST 22 (17-59) U/L ALT 34 (21-72) U/L Alkaline Phosphatase 63 (38-126) U/L Total Protein 7.4 (6.3-8.3) g/dL Albumin 3.7 (3.5-5.0) g/dL Globulin 3.7 (2.2-3.9) gm/dL Albumin/Globulin Ratio 1.0 (1.0-2.1) 07/18/17 07/17/17 Range/Units 06:15 21:09 WBC 8.7 (4.8-10.8) K/uL RBC 4.39 L (4.40-5.90) Mil/uL Hgb 13.7 (12.0-18.0) g/dL Hct 39.1 (35.0-51.0) % MCV 89.1 (80.0-94.0) fL MCH 31.3 H (27.0-31.0) pg MCHC 35.1 (33.0-37.0) g/dL RDW 13.6 (11.5-14.5) % Plt Count 232 (130-400) K/uL MPV 9.2 (7.2-11.7) fL Neut % (Auto) 64.2 (50.0-75.0) % Lymph % (Auto) 23.7 (20.0-40.0) % [place] % (Auto) 9.8 (0.0-10.0) % Eos % (Auto) 1.6 (0.0-4.0) % Baso % (Auto) 0.7 (0.0-2.0) % Neut # 5.6 (1.8-7.0) K/uL Lymph # 2.1 (1.0-4.3) K/uL [place] # 0.9 H (0.0-0.8) K/uL Eos # 0.1 (0.0-0.7) K/uL Baso # 0.1 (0.0-0.2) K/uL Sodium (132-148) mmol/L Potassium (3.6-5.2) mmol/L Chloride (98-107) mmol/L Carbon Dioxide (22-30) mmol/L Anion Gap (10-20) BUN (9-20) mg/dL Creatinine (0.8-1.5) mg/dL Est GFR ( Amer) Est GFR (Non-Af Amer) POC Glucose (mg/dL) 186 H (65-110) mg/dL Random Glucose (75-110) mg/dL Calcium (8.6-10.4) mg/dl Phosphorus (2.5-4.5) mg/dL Magnesium (1.6-2.3) mg/dL Total Bilirubin (0.2-1.3) mg/dL AST (17-59) U/L ALT (21-72) U/L Alkaline Phosphatase (38-126) U/L Total Protein (6.3-8.3) g/dL Albumin (3.5-5.0) g/dL Globulin (2.2-3.9) gm/dL Albumin/Globulin Ratio (1.0-2.1) Laboratory Results - last 24 hr 07/17/17 07/18/17 07/18/17 21:09 06:15 06:19 WBC 8.7 RBC 4.39 L Hgb 13.7 Hct 39.1 MCV 89.1 MCH 31.3 H MCHC 35.1 RDW 13.6 Plt Count 232 MPV 9.2 Neut % (Auto) 64.2 Lymph % (Auto) 23.7 [place] % (Auto) 9.8 Eos % (Auto) 1.6 Baso % (Auto) 0.7 Neut # 5.6 Lymph # 2.1 [place] # 0.9 H Eos # 0.1 Baso # 0.1 Sodium 133 Potassium 3.5 L Chloride 100 Carbon Dioxide 23 Anion Gap 14 BUN 10 Creatinine 0.5 L Est GFR ( Amer) > 60 Est GFR (Non-Af Amer) > 60 POC Glucose (mg/dL) 186 H Random Glucose 159 H Calcium 9.1 Phosphorus 3.2 Magnesium 1.8 Total Bilirubin 0.7 AST 22 ALT 34 Alkaline Phosphatase 63 Total Protein 7.4 Albumin 3.7 Globulin 3.7 Albumin/Globulin Ratio 1.0 07/18/17 07/18/17 07:15 11:25 WBC RBC Hgb Hct MCV MCH MCHC RDW Plt Count MPV Neut % (Auto) Lymph % (Auto) [place] % (Auto) Eos % (Auto) Baso % (Auto) Neut # Lymph # [place] # Eos # Baso # Sodium Potassium Chloride Carbon Dioxide Anion Gap BUN Creatinine Est GFR ( Amer) Est GFR (Non-Af Amer) POC Glucose (mg/dL) 176 H 252 H Random Glucose Calcium Phosphorus Magnesium Total Bilirubin AST ALT Alkaline Phosphatase Total Protein Albumin Globulin Albumin/Globulin Ratio Fingerstick Blood Sugar Results: 252 Review of Systems - Constitutional Constitutional: absent: Fever, Chills, Sweats, Weakness - EENT Eyes: absent: Blurred Vision, Change in Vision Ears: absent: Dizziness - Cardiovascular Cardiovascular: absent: Chest Pain, Chest Pain at Rest, Diaphoresis, Dyspnea, Lightheadedness, Palpitations, Syncope - Respiratory Respiratory: absent: Dyspnea, Pain on Inspiration - Gastrointestinal Gastrointestinal: absent: Abdominal Pain, Cramping, Nausea, Vomiting - Musculoskeletal Musculoskeletal: absent: Numbness, Tingling - Neurological Neurological: absent: Dizziness, Headaches, Paresthesias, Tingling, Weakness - Endocrine Endocrine: absent: Fatigue, Palpitations Critical Care Progress Note - Nutrition Nutrition: Nutrition Category Date Time Status Heart Healthy Diet [DIET] Diets 07/17/17 Dinner Active Assessment/Plan - Assessment and Plan (Free Text) Assessment: Patient is a 51 year old male with past medical history of of diabetes, hypertension, HLD and hyperthyroidism (s/p radioactive iodine treatment), now hypothyroidism who presented with chest pain for 4 days that gradually worsened and associated with shortness of breath, palpitation, diaphoresis. Patient had a cardiac catherization (07/16/17) and was found to have a triple-vessel disease. Patient is s/p RCA and Left Circumflex Drug eluting stents (POD #1) and plans for PCI of LAD after 1-2 weeks Today: Plan: Patient has been cleared by case packer and sealer to be discharge home and patient is aware that he is to follow up with Dr. Blackburn and Dr. Venegas in 1-2 weeks Plan: Neuro: Alert, awake and oriented Cardio: Unstable angina, Hx of HTN and HLD Storage Battery Tester, Dr. Venegas on board----> Help appreciated * Cardiac cath (07/16/17): Noted to have a triple-vessel disease; RCA, Left circumflex and LAD. * Patient is s/p RCA and Left Circumflex Drug eluting stents (POD #1) and plans for PCI of LAD after 1-2 weeks * Plan for PCI at [facility] (07/17/17) Medication/Management: * Lopressor 25mg PO BID * Aspirin 81mg PO daily * Crestor 40mg PO HS * Plavix 75mg PO daily * Cozaar 50mg PO daily * HCTZ 12.5mg PO daily * Heparin Drip Pulm: No acute issues GI: No acute issues Endo: Hx of Diabetes and hypothyroidism Medication/Management: * Accuchecks * Glimepiride 1mg PO daily * ISS medium dose protocol * Levothyroxine 137mcg PO daily Prophylaxis: DVT: Ambulating, Lovenox 40mg SC daily GI: Pepcid 20mg PO daily Plan: Patient is clear by case packer and sealer to be discharge home and is to follow up with Dr. Venegas and Dr. Blackburn in 1-2 weeks <Isaiah Hernández - Last Filed: 07/18/17 17:11> CCU Objective - Vital Signs / Intake & Output Intake and Output (Last 8hrs): Intake & Output 07/18/17 07/18/17 07/18/17 06:59 14:59 22:59 Intake Total 640 1140 0 Output Total 400 900 250 Balance 240 240 -250 Intake: Intake, IV Amount 640 480 0 Left Hand 640 480 0 Oral 660 0 Output: Urine 400 900 250 Urine, Voided 400 900 250 Stool 0 0 Emesis 0 0 Other: # Voids Urine, Voided 1 # Bowel Movements 0 - Medications Active Medications: Active Medications Generic Name Dose Route Start Last Admin Trade Name Freq PRN Reason Stop Dose Admin Acetaminophen 650 mg 07/17/17 16:45 Tylenol 325mg Tab PO Q6 PRN Pain, Mild (1-3) Aspirin 81 mg 07/16/17 10:00 07/18/17 09:25 Ecotrin PO 81 mg DAILY HERB Administration Clopidogrel Bisulfate 75 mg 07/17/17 10:00 07/18/17 09:24 Plavix PO 75 mg DAILY HERB Administration Enoxaparin Sodium 40 mg 07/18/17 10:00 07/18/17 09:24 Lovenox SC 40 mg DAILY HERB Administration Famotidine 20 mg 07/18/17 10:00 07/18/17 09:24 Pepcid PO 20 mg DAILY HERB Administration Glimepiride 1 mg 07/15/17 10:00 07/18/17 10:39 Amaryl PO 1 mg DAILY HERB Administration Hydrochlorothiazide 12.5 mg 07/15/17 10:00 07/18/17 10:39 Microzide PO 12.5 mg DAILY HERB Administration Insulin Human Regular 0 unit 07/15/17 16:30 07/18/17 13:08 Novolin R SC 4 unit ACHS HERB Administration Protocol Levothyroxine Sodium 137 mcg 07/15/17 06:30 07/18/17 05:46 Levothroid PO 137 mcg DAILY@0630 HERB Administration Losartan Potassium 50 mg 07/15/17 10:00 07/18/17 09:25 Cozaar PO 50 mg DAILY HERB Administration Metoprolol Tartrate 25 mg 07/15/17 18:00 07/18/17 09:24 Lopressor PO 25 mg BID HERB Administration Nitroglycerin 1 ea 07/15/17 13:18 07/15/17 17:58 Nitro-Bid 2% Oint TOP 1 ea Q6 PRN Administration Shortness of Breath Rosuvastatin Calcium 40 mg 07/16/17 11:53 07/17/17 21:53 Crestor PO 40 mg HS HERB Administration - Patient Studies Lab Studies: Lab Studies 07/18/17 07/18/17 07/18/17 Range/Units 16:11 11:25 07:15 WBC (4.8-10.8) K/uL RBC (4.40-5.90) Mil/uL Hgb (12.0-18.0) g/dL Hct (35.0-51.0) % MCV (80.0-94.0) fL MCH (27.0-31.0) pg MCHC (33.0-37.0) g/dL RDW (11.5-14.5) % Plt Count (130-400) K/uL MPV (7.2-11.7) fL Neut % (Auto) (50.0-75.0) % Lymph % (Auto) (20.0-40.0) % [place] % (Auto) (0.0-10.0) % Eos % (Auto) (0.0-4.0) % Baso % (Auto) (0.0-2.0) % Neut # (1.8-7.0) K/uL Lymph # (1.0-4.3) K/uL [place] # (0.0-0.8) K/uL Eos # (0.0-0.7) K/uL Baso # (0.0-0.2) K/uL Sodium (132-148) mmol/L Potassium (3.6-5.2) mmol/L Chloride (98-107) mmol/L Carbon Dioxide (22-30) mmol/L Anion Gap (10-20) BUN (9-20) mg/dL Creatinine (0.8-1.5) mg/dL Est GFR ( Amer) Est GFR (Non-Af Amer) POC Glucose (mg/dL) 188 H 252 H 176 H (65-110) mg/dL Random Glucose (75-110) mg/dL Calcium (8.6-10.4) mg/dl Phosphorus (2.5-4.5) mg/dL Magnesium (1.6-2.3) mg/dL Total Bilirubin (0.2-1.3) mg/dL AST (17-59) U/L ALT (21-72) U/L Alkaline Phosphatase (38-126) U/L Total Protein (6.3-8.3) g/dL Albumin (3.5-5.0) g/dL Globulin (2.2-3.9) gm/dL Albumin/Globulin Ratio (1.0-2.1) 07/18/17 07/18/17 07/17/17 Range/Units 06:19 06:15 21:09 WBC 8.7 (4.8-10.8) K/uL RBC 4.39 L (4.40-5.90) Mil/uL Hgb 13.7 (12.0-18.0) g/dL Hct 39.1 (35.0-51.0) % MCV 89.1 (80.0-94.0) fL MCH 31.3 H (27.0-31.0) pg MCHC 35.1 (33.0-37.0) g/dL RDW 13.6 (11.5-14.5) % Plt Count 232 (130-400) K/uL MPV 9.2 (7.2-11.7) fL Neut % (Auto) 64.2 (50.0-75.0) % Lymph % (Auto) 23.7 (20.0-40.0) % [place] % (Auto) 9.8 (0.0-10.0) % Eos % (Auto) 1.6 (0.0-4.0) % Baso % (Auto) 0.7 (0.0-2.0) % Neut # 5.6 (1.8-7.0) K/uL Lymph # 2.1 (1.0-4.3) K/uL [place] # 0.9 H (0.0-0.8) K/uL Eos # 0.1 (0.0-0.7) K/uL Baso # 0.1 (0.0-0.2) K/uL Sodium 133 (132-148) mmol/L Potassium 3.5 L (3.6-5.2) mmol/L Chloride 100 (98-107) mmol/L Carbon Dioxide 23 (22-30) mmol/L Anion Gap 14 (10-20) BUN 10 (9-20) mg/dL Creatinine 0.5 L (0.8-1.5) mg/dL Est GFR ( Amer) > 60 Est GFR (Non-Af Amer) > 60 POC Glucose (mg/dL) 186 H (65-110) mg/dL Random Glucose 159 H (75-110) mg/dL Calcium 9.1 (8.6-10.4) mg/dl Phosphorus 3.2 (2.5-4.5) mg/dL Magnesium 1.8 (1.6-2.3) mg/dL Total Bilirubin 0.7 (0.2-1.3) mg/dL AST 22 (17-59) U/L ALT 34 (21-72) U/L Alkaline Phosphatase 63 (38-126) U/L Total Protein 7.4 (6.3-8.3) g/dL Albumin 3.7 (3.5-5.0) g/dL Globulin 3.7 (2.2-3.9) gm/dL Albumin/Globulin Ratio 1.0 (1.0-2.1) Laboratory Results - last 24 hr 07/17/17 07/18/17 07/18/17 21:09 06:15 06:19 WBC 8.7 RBC 4.39 L Hgb 13.7 Hct 39.1 MCV 89.1 MCH 31.3 H MCHC 35.1 RDW 13.6 Plt Count 232 MPV 9.2 Neut % (Auto) 64.2 Lymph % (Auto) 23.7 [place] % (Auto) 9.8 Eos % (Auto) 1.6 Baso % (Auto) 0.7 Neut # 5.6 Lymph # 2.1 [place] # 0.9 H Eos # 0.1 Baso # 0.1 Sodium 133 Potassium 3.5 L Chloride 100 Carbon Dioxide 23 Anion Gap 14 BUN 10 Creatinine 0.5 L Est GFR ( Amer) > 60 Est GFR (Non-Af Amer) > 60 POC Glucose (mg/dL) 186 H Random Glucose 159 H Calcium 9.1 Phosphorus 3.2 Magnesium 1.8 Total Bilirubin 0.7 AST 22 ALT 34 Alkaline Phosphatase 63 Total Protein 7.4 Albumin 3.7 Globulin 3.7 Albumin/Globulin Ratio 1.0 07/18/17 07/18/17 07/18/17 07:15 11:25 16:11 WBC RBC Hgb Hct MCV MCH MCHC RDW Plt Count MPV Neut % (Auto) Lymph % (Auto) [place] % (Auto) Eos % (Auto) Baso % (Auto) Neut # Lymph # [place] # Eos # Baso # Sodium Potassium Chloride Carbon Dioxide Anion Gap BUN Creatinine Est GFR ( Amer) Est GFR (Non-Af Amer) POC Glucose (mg/dL) 176 H 252 H 188 H Random Glucose Calcium Phosphorus Magnesium Total Bilirubin AST ALT Alkaline Phosphatase Total Protein Albumin Globulin Albumin/Globulin Ratio Critical Care Progress Note - Nutrition Nutrition: Nutrition Category Date Time Status Heart Healthy Diet [DIET] Diets 07/17/17 Dinner Active Attending/Attestation - Attestation I have personally seen and examined this patient.: Yes I have fully participated in the care of the patient.: Yes I have reviewed all pertinent clinical information: Yes Notes (Text): 07/18/17 17:11 Patient is seen and examined in the intensive care unit. Case discussed with house staff in the morning Patient is s/p RCA and Left Circumflex Drug eluting stents (POD #1) and plans for PCI of LAD after 1-2 weeks Continue present treatment Further plan as per cardiology
[2017-07-18 17:16] VITALS: TEMP 98.3; O2SAT 99
--- NOTE | 2017-07-18 22:54 | CP.PCM.PN ---
Subjective - Date & Time of Evaluation Date of Evaluation: 07/18/17 Time of Evaluation: 08:20 - Subjective Subjective: Patient seen and evaluated Denies chest pain and dyspnea S/P L Cx and RCA stents Review Of Systems Except As Marked, All Systems Reviewed And Found Negative. Constitutional: Positive for: Sweats. Negative for: Fever Cardiovascular: Positive for: Chest Pain Respiratory: Negative for: Hemoptysis Gastrointestinal: Negative for: Vomiting, Abdominal Pain Musculoskeletal: Negative for: Neck Pain, Back Pain, Leg Pain Skin: Negative for: Rash Neurological: Negative for: Weakness, Numbness Physical Exam - Physical Exam Appears: In Acute Distress (mild) Skin: Normal Color, Warm, Diaphoretic Head: Atraumatic, Normacephalic Eye(s): bilateral: Normal Inspection, PERRL, EOMI Neck: Normal ROM, Supple Cardiovascular: Rhythm Regular Respiratory: Normal Breath Sounds, No Accessory Muscle Use Gastrointestinal/Abdominal: Soft, No Tenderness Back: No CVA Tenderness Extremity: Normal ROM, No Pedal Edema, No Calf Tenderness Neurological/Psych: Oriented x3, Normal Motor, Normal Sensation Objective - Vital Signs/Intake and Output Vital Signs (last 24 hours): Temp Pulse Resp BP Pulse Ox 98.3 F 63 11 L 137/95 H 99 07/18/17 16:00 07/18/17 11:50 07/18/17 11:50 07/18/17 11:50 07/18/17 16:00 Intake and Output: 07/18/17 07/19/17 18:59 06:59 Intake Total 1170 Output Total 1150 Balance 20 - Labs Labs: 07/18/17 06:15 07/18/17 06:19 PT 10.4 SECONDS (9.7-12.2) 07/14/17 23:47 INR 0.9 07/14/17 23:47 APTT 85 SECONDS (21-34) H D 07/17/17 05:51 Assessment and Plan - Assessment and Plan (Free Text) Assessment: Patient is a 51 year old male with past medical history of of diabetes, hypertension, HLD and hyperthyroidism (s/p radioactive iodine treatment), now hypothyroidism who presented with chest pain for 4 days that gradually worsened and associated with shortness of breath, palpitation, diaphoresis. Patient had a cardiac catherization (07/16/17) and was found to have a triple-vessel disease. T Neuro: Alert, awake and oriented Cardio: Unstable angina, Hx of HTN and HLD Psych Sales Specialist, Dr. Venegas on board----> Help appreciated * Cardiac cath (07/16/17): Noted to have a triple-vessel disease. * Lopressor 25mg PO BID * Aspirin 81mg PO daily * Crestor 40mg PO HS * Plavix 75mg PO daily * Cozaar 50mg PO daily * HCTZ 12.5mg PO daily Pulm: No acute issues GI: No acute issues Endo: Hx of Diabetes Medication/Management: * Accuchecks * Glimepiride 1mg PO daily * ISS medium dose protocol Prophylaxis: DVT: Ambulating, heparin drip GI: Not indicated Patient s/p RCA and L Cx stents For PCI of LAD as out patient
--- NOTE | 2017-07-22 17:11 | CARD ---
APPROVED REPORT EKG Measurement Heart [id number] <Conclusion> Normal sinus rhythm Nonspecific ST and T wave abnormality Abnormal ECG
--- NOTE | 2017-07-23 01:47 | CARDCATH ---
PROCEDURE DATE: 07/16/2017 PROCEDURES: 1. Left heart catheterization and LV angiogram. 2. Coronary angiogram. 3. Radiological supervision and radiological interpretation of the left heart catheterization, LV angiogram and coronary angiogram. REFERRING PHYSICIAN: Arden Blackburn MD PERFORMING PHYSICIAN: Kole Venegas MD CLINICAL INDICATIONS: 1. Chest pain. 2. Non-ST elevation myocardial infarction. 3. Hyperlipidemia. 4. Diabetes. 5. Hypertension. PROCEDURE: After informed consent, the patient was prepped and draped in the usual sterile fashion. Lidocaine 2% was given in the right wrist for local anesthesia. Using micropuncture technique, a 6-Bangladeshi sheath was introduced in the right radial artery. A 6-Bangladeshi Quinlan catheter was inserted into left main coronary artery. Contrast injected and left coronary angiogram was performed. A 6-Bangladeshi JR4 diagnostic catheter engaged into the right coronary artery. Contrast injected and right coronary angiogram was performed. JR4 6-Bangladeshi catheter crossed into left ventricle across the aortic valve. Contrast injected and LV angiogram was performed. Radiological supervision and radiological interpretation of the LV angiogram and coronary angiogram was performed. The patient tolerated the procedure well. Postprocedure Terumo pressure band applied to right wrist with excellent hemostasis. FINDINGS: 1. Left main coronary artery is patent. 2. Proximal LAD is patent. Mid LAD has 30% eccentric stenosis. Distal LAD has a long diffuse 80-85% stenosis. 3. Proximal left circumflex and obtuse marginal branches are patent. Distal left circumflex has 99% concentric stenosis. Distal to the stenosis, there is IVAN-1 flow noted. 4. Right coronary artery is dominant. The mid right coronary artery has a 99% severe stenosis. Distal to the stenosis, there is IVAN-1 blood flow noted. 5. The LV ejection fraction is approximately 50%. Inferior wall is hypokinetic. EDP is 24. No gradient across the aortic valve. IMPRESSION: Severe triple-vessel coronary artery disease. RECOMMENDATION: Either coronary artery bypass grafting or multivessel staged percutaneous coronary intervention. Kole Venegas MD
--- NOTE | 2017-07-23 21:05 | CP.PCM.DIS ---
Provider - Provider Date of Admission: 07/15/17 18:38 Attending physician: Arden Blackburn MD Time Spent in preparation of Discharge (in minutes): 45 Hospital Course - Lab Results Lab Results: Most Recent Lab Values WBC 8.7 K/uL (4.8-10.8) 07/18/17 06:15 RBC 4.39 Mil/uL (4.40-5.90) L 07/18/17 06:15 Hgb 13.7 g/dL (12.0-18.0) 07/18/17 06:15 Hct 39.1 % (35.0-51.0) 07/18/17 06:15 MCV 89.1 fL (80.0-94.0) 07/18/17 06:15 MCH 31.3 pg (27.0-31.0) H 07/18/17 06:15 MCHC 35.1 g/dL (33.0-37.0) 07/18/17 06:15 RDW 13.6 % (11.5-14.5) 07/18/17 06:15 Plt Count 232 K/uL (130-400) 07/18/17 06:15 MPV 9.2 fL (7.2-11.7) 07/18/17 06:15 Neut % (Auto) 64.2 % (50.0-75.0) 07/18/17 06:15 Lymph % (Auto) 23.7 % (20.0-40.0) 07/18/17 06:15 [place] % (Auto) 9.8 % (0.0-10.0) 07/18/17 06:15 Eos % (Auto) 1.6 % (0.0-4.0) 07/18/17 06:15 Baso % (Auto) 0.7 % (0.0-2.0) 07/18/17 06:15 Neut # 5.6 K/uL (1.8-7.0) 07/18/17 06:15 Lymph # 2.1 K/uL (1.0-4.3) 07/18/17 06:15 [place] # 0.9 K/uL (0.0-0.8) H 07/18/17 06:15 Eos # 0.1 K/uL (0.0-0.7) 07/18/17 06:15 Baso # 0.1 K/uL (0.0-0.2) 07/18/17 06:15 PT 10.4 SECONDS (9.7-12.2) 07/14/17 23:47 INR 0.9 07/14/17 23:47 APTT 85 SECONDS (21-34) H D 07/17/17 05:51 D-Dimer, Quantitative < 200 ng/mlDDU (0-243) 07/15/17 06:38 Sodium 133 mmol/L (132-148) 07/18/17 06:19 Potassium 3.5 mmol/L (3.6-5.2) L 07/18/17 06:19 Chloride 100 mmol/L (98-107) 07/18/17 06:19 Carbon Dioxide 23 mmol/L (22-30) 07/18/17 06:19 Anion Gap 14 (10-20) 07/18/17 06:19 BUN 10 mg/dL (9-20) 07/18/17 06:19 Creatinine 0.5 mg/dL (0.8-1.5) L 07/18/17 06:19 Est GFR ( Amer) > 60 07/18/17 06:19 Est GFR (Non-Af Amer) > 60 07/18/17 06:19 POC Glucose (mg/dL) 188 mg/dL (65-110) H 07/18/17 16:11 Random Glucose 159 mg/dL (75-110) H 07/18/17 06:19 Hemoglobin A1c 10.4 % (4.2-6.5) H 07/15/17 06:12 Calcium 9.1 mg/dl (8.6-10.4) 07/18/17 06:19 Phosphorus 3.2 mg/dL (2.5-4.5) 07/18/17 06:19 Magnesium 1.8 mg/dL (1.6-2.3) 07/18/17 06:19 Total Bilirubin 0.7 mg/dL (0.2-1.3) 07/18/17 06:19 AST 22 U/L (17-59) 07/18/17 06:19 ALT 34 U/L (21-72) 07/18/17 06:19 Alkaline Phosphatase 63 U/L (38-126) 10/11/17 06:19 Total Creatine Kinase 107 U/L (55-170) 07/16/17 08:02 CK-MB (Mass) 3.37 ng/mL (0.0-3.38) 07/16/17 08:02 Troponin I 0.0380 ng/mL (0.00-0.120) 07/14/17 23:47 Troponin I, Quant 0.8420 ng/mL (0.00-0.120) H* 07/16/17 08:02 NT-Pro-B Natriuret Pep 105 pg/mL (0-900) 07/14/17 23:47 Total Protein 7.4 g/dL (6.3-8.3) 07/18/17 06:19 Albumin 3.7 g/dL (3.5-5.0) 07/18/17 06:19 Globulin 3.7 gm/dL (2.2-3.9) 07/18/17 06:19 Albumin/Globulin Ratio 1.0 (1.0-2.1) 07/18/17 06:19 TSH 3rd Generation 12.60 mIU/L (0.46-4.68) H 07/15/17 06:15 - Hospital Course Hospital Course: Chief: Chest pain. History of present illness: 50-year-old male but he still had diabetes, hypertension, hypercholesterolemia, history of hyperactive thyroidism, status post radioactive iodine treatment, now hypothyroidism on treatment. Patient started having chest pain 4 days ago, epigastric in origin, pain was persistently noted, gradually got worse until yesterday. Last night the patient was not able to tolerate the pain, the pain was epigastric in area, radiating to the chest. Also to the left shoulder. Pain was excruciating, associated with the chest tightness on the shortness of breath. Patient because of the worsening pain, came to the emergency room last night. In the emergency room, patient was evaluated, given nitroglycerin, pain relieved. Patient also had an episode of sweating, palpitation. He did not have any dizziness. Medical history: Hypothyroidism, hypertension, hypercholesteremia, diabetes. Allergy: History of allergic to methimazole. Family history: Father had a heart disease. Mother with uterine cancer. Siblings are healthy. SOCIAL HISTORY: Drinks socially. Nonsmoker. Current medications: Levothyroxine 137 g Losartan. Hydrochlorothiazide. Metformin Glimepiride. invokana Review of system: Denies any headache, chest tightness, shortness of breath, sweating noted. No GI symptoms. On examination: Vital signs stable. Chest good air entry. Regular heart tone, nontender abdomen. No pedal edema. Labs reviewed. Mild elevation of the CPK-MB noted. EKG nonspecific. Assessment at admission: 51-year-old male with a history of diabetes, hypertension, hypercholesteremia, hypothyroidism, status post iodine radiation treatment for hyperactive thyroidism. Now admitted with chest pain, unstable angina likely be I advised the patient to stay, beta blockers, aspirin, antiplatelets, DVT prophylaxis. Cardiology evaluation. Patient may need angiogram. Given the high risk patient high risk for heart disease. Will follow the patient. Patient admitted with unstable angina. Seen by cardiology. Underwent angiogram. Noted to have triple-vessel disease. Patient underwent left circumflex, RCA stenting done by Dr. Venegas. Stable clinically. He will be discharged home. He will follow-up with the combustion analyst. He will probably need another angiogram and stenting. Diagnosis: 51-year-old male with a history of diabetes hypertension admitted with unstable angina. Acute coronary artery disease. Acute coronary syndrome, status post stent placement. He will be continuing with the home medications. Antiplatelets, beta carlin, follow-up as an outpatient Discharge Plan - Discharge Medications Prescriptions: Atorvastatin 80 mg PO DAILY #30 Metoprolol Tartrate [Lopressor] 25 mg PO BID #60 tab Clopidogrel [Plavix] 75 mg PO DAILY #30 tab - Follow Up Plan Condition: GUARDED Disposition: HOME/ ROUTINE Instructions: Metoprolol (By mouth), Aspirin (By mouth), Atorvastatin (By mouth ), Clopidogrel (By mouth), Myocardial Infarction (DC), Hypothyroidism (DC), Diabetes Mellitus Type 2 in Adults (DC), Meal Planning with Diabetes Exchanges ( DC), Chronic Hypertension (DC), Hyperlipidemia (DC) Additional Instructions: Patient is medically stable for discharge home. Patient is to follow up with Primary Medical Dr. Blackburn as well as Logistic Manager Dr. Venegas within one week of discharge. Patient is to begin taking the following medications: Metoprolol 25 mg, take one by mouth twice a day; Plavix 75 mg, take one by mouth daily; Aspirin 81 mg, take one by mouth daily, Atorvastatin will be increased to 80 mg, take one by mouth nightly. Patient may resume other home meds. Patient was counseled on dietary changes as well as exercise daily as tolerated. Patient should refrain from heavy lifting for the next three days. Patient is to be provided with a note to be excused from work for the next two weeks. Referrals: Kole Venegas MD [Staff Provider] - 1 Week Arden Blackburn MD [Staff Provider] - 1 Week
== END 2017-07-18 17:13 | disposition home or self-care (01) | DRG 287 ==
LOC: C.ER 23:21 → C.9E 07-15 01:57 → C.9I 07-15 02:55 → OBSVTOIN 07-15 18:38
PROVIDERS: ADMIT Internal Medicine; ATTEND Internal Medicine
PROC: 4A023N7 Measurement of Cardiac Sampling and Pressure, Left Heart, Percutaneous Approach (ICD-10-PCS; principal; 2017-07-15)
PROC: B300ZZZ Plain Radiography of Thoracic Aorta (ICD-10-PCS; 2017-07-15)
DX: R07.9 Chest pain, unspecified (principal); E11.65 Type 2 diabetes mellitus with hyperglycemia; I10 Essential (primary) hypertension; E03.9 Hypothyroidism, unspecified; E78.00 Pure hypercholesterolemia, unspecified

== ENCOUNTER 2017-07-30 14:29 | Observation (INO) | payer OTHER ==
--- NOTE | 2017-07-30 14:59 | C.PDOC ---
History Of Present Illness 51 y/o with a hx of CAD and hypothyroidism, s/p 2 stents, dm, hyperlipidemia and is sent by Dr. Venegas for an additional stent to LAD. Patient denies any new complaints. Time Seen by Provider: 07/30/17 14:39 Chief Complaint (Nursing): Chest Pain History Per: Patient History/Exam Limitations: no limitations Severity: None Pain Scale Rating Of: 0 Additional History Per: Patient Past Medical History Reviewed: Historical Data, Nursing Documentation, Vital Signs Vital Signs: Last Vital Signs Temp 97.7 F 07/30/17 14:32 Pulse 66 07/30/17 14:32 Resp 18 07/30/17 14:32 BP 125/80 07/30/17 14:32 Pulse Ox 98 07/30/17 14:32 - Medical History PMH: Diabetes, HTN, Hypercholesterolemia, Hypothyroidism Denies: Chronic Kidney Disease Surgical History: Appendectomy, Coronary Stent - [facility] Procedures MEASURE OF CARDIAC SAMPL & PRESSURE, L HEART, PERC APPROACH (07/15/17) PLAIN RADIOGRAPHY OF THORACIC AORTA (07/15/17) Family History: States: Unknown Family Hx - Social History Hx Tobacco Use: No Hx Alcohol Use: Yes (occassionally) Hx Substance Use: No - Immunization History Hx Tetanus Toxoid Vaccination: No Hx Influenza Vaccination: No Hx Pneumococcal Vaccination: No Review Of Systems Except As Marked, All Systems Reviewed And Found Negative. Constitutional: Negative for: Fever, Chills Cardiovascular: Negative for: Palpitations, Light Headedness Respiratory: Negative for: Shortness of Breath Gastrointestinal: Negative for: Nausea, Vomiting, Abdominal Pain Genitourinary: Negative for: Dysuria Skin: Negative for: Rash Physical Exam - Physical Exam Appears: Non-toxic, No Acute Distress Skin: Warm, Dry Head: Atraumatic, Normacephalic Oral Mucosa: Moist Chest: Symmetrical Cardiovascular: Rhythm Regular, No Murmur Respiratory: Normal Breath Sounds, No Rales, No Rhonchi, No Wheezing Gastrointestinal/Abdominal: Soft, No Tenderness Back: Normal Inspection, No CVA Tenderness Extremity: Normal ROM (x4) Neurological/Psych: Oriented x3 Gait: Steady ED Course And Treatment Pulse Ox Interpretation: Normal Medical Decision Making Medical Decision Making: Brought in for an additional stent placement by Dr. Venegas. EKG shows NSR at 59bpm with isolated t wave inversion in III. Cxray negative. Plans: * Blood labs * EKG * CXR * Admit 14:55. Spoke to Dr. Blackburn and he will admit patient to telemetry. Disposition - Disposition Disposition: HOSPITALIZED Disposition Time: 16:09 Condition: FAIR - Clinical Impression Clinical Impression: Coronary artery disease - Scribe Statement The provider has reviewed the documentation as recorded by the Scribe Michelle sanderson All medical record entries made by the Scribe were at my direction and personally dictated by me. I have reviewed the chart and agree that the record accurately reflects my personal performance of the history, physical exam, medical decision making, and the department course for this patient. I have also personally directed, reviewed, and agree with the discharge instructions and disposition.
--- NOTE | 2017-07-30 15:47 | RAD ---
HISTORY: BASELINE COMPARISON: 07/14/2017 TECHNIQUE: Chest PA and lateral FINDINGS: LUNGS: No active pulmonary disease. PLEURA: No significant pleural effusion identified. No pneumothorax apparent. CARDIOVASCULAR: Normal. OSSEOUS STRUCTURES: No significant abnormalities. VISUALIZED UPPER ABDOMEN: Normal. OTHER FINDINGS: None. IMPRESSION: No active disease.
[2017-07-30 16:01] LABS: BASO # 0.1 K/uL (0.0-0.2); EOS # 0.2 K/uL (0.0-0.7); EOS % 2.1 % (0.0-4.0); HEMATOCRIT 40.9 % (35.0-51.0); LYMPH # 1.7 K/uL (1.0-4.3); LYMPH % 20.5 % (20.0-40.0); MEAN CELL VOLUME 89.8 fL (80.0-94.0); MEAN CORPUSCULAR HEMOGLOBIN 31.3 pg (27.0-31.0); MEAN CORPUSCULAR HGB CONC 34.9 g/dL (33.0-37.0); MEAN PLATELET VOLUME 9.2 fL (7.2-11.7); MONO # 0.6 K/uL (0.0-0.8); MONO % 7.4 % (0.0-10.0); RED CELL DISTRIBUTION WIDTH 12.9 % (11.5-14.5); WHITE BLOOD COUNT 8.4 K/uL (4.8-10.8)
[2017-07-30 16:21] LABS: CHLORIDE 96 mmol/L (98-107); SODIUM 136 mmol/L (132-148)
[2017-07-30 16:23] LABS: GFR AFRICAN-AMERICAN > 60
--- NOTE | 2017-07-30 16:23 | CP.PCM.CON ---
History of Present Illness - History of Present Illness History of Present Illness: 51 male s/p RCA and L Cx stents Needs LAD stenting Scheduled for the procedure at [facility] at 1pm NPO after breakfast continue all medications Check labs in am Past Patient History - Infectious Disease Hx of Infectious Diseases: None - Past Medical History & Family History Past Medical History?: Yes - Past Social History Smoking Status: Former Smoker - CARDIAC Hx Hypercholesterolemia: Yes Hx Hypertension: Yes - PULMONARY Hx Respiratory Disorders: No - NEUROLOGICAL Hx Neurological Disorder: No - HEENT Hx HEENT Problems: No - RENAL Hx Chronic Kidney Disease: No - ENDOCRINE/METABOLIC Hx Hypothyroidism: Yes - HEMATOLOGICAL/ONCOLOGICAL Hx Blood Disorders: No - INTEGUMENTARY Hx Dermatological Problems: No - MUSCULOSKELETAL/RHEUMATOLOGICAL Hx Musculoskeletal Disorders: No Hx Falls: No - GASTROINTESTINAL Hx Gastrointestinal Disorders: No - GENITOURINARY/GYNECOLOGICAL Hx Genitourinary Disorders: No - PSYCHIATRIC Hx Substance Use: No - SURGICAL HISTORY Hx Appendectomy: Yes Hx Coronary Stent: Yes - ANESTHESIA Hx Anesthesia: Yes Hx Anesthesia Reactions: No Hx Malignant Hyperthermia: No Meds Allergies/Adverse Reactions: Allergies Allergy/AdvReac Type Severity Reaction Status Date / Time No Known Allergies Allergy Verified 07/30/17 14:38 Results - Vital Signs Recent Vital Signs: Last Vital Signs Temp 97.7 F 07/30/17 14:32 Pulse 66 07/30/17 14:32 Resp 18 07/30/17 14:32 BP 125/80 07/30/17 14:32 Pulse Ox 98 07/30/17 14:32 - Labs Result Diagrams: 07/30/17 15:49 07/30/17 15:49 Labs: Laboratory Results - last 24 hr 07/30/17 07/30/17 07/30/17 15:49 15:49 15:49 WBC 8.4 RBC 4.55 Hgb 14.3 Hct 40.9 MCV 89.8 MCH 31.3 H MCHC 34.9 RDW 12.9 Plt Count 278 MPV 9.2 Neut % (Auto) 69.0 Lymph % (Auto) 20.5 [place] % (Auto) 7.4 Eos % (Auto) 2.1 Baso % (Auto) 1.0 Neut # 5.8 Lymph # 1.7 [place] # 0.6 Eos # 0.2 Baso # 0.1 PT 11.2 INR 1.0 APTT 33 Chloride 96 L Albumin 4.7
[2017-07-30 16:24] LABS: ALB/GLOB RATIO 1.6 (1.0-2.1); ALKALINE PHOSPHATASE 63 U/L (38-126); ALT/SGPT 28 U/L (21-72); AST/SGOT 28 U/L (17-59); BILIRUBIN,TOTAL 0.7 mg/dL (0.2-1.3); BLOOD UREA NITROGEN 15 mg/dL (9-20); CALCIUM 9.7 mg/dl (8.6-10.4); CARBON DIOXIDE 26 mmol/L (22-30); GLUCOSE,RANDOM 141 mg/dL (75-110); TOTAL PROTEIN 7.6 g/dL (6.3-8.3)
--- NOTE | 2017-07-30 22:24 | CP.PCM.HP ---
History of Present Illness - History of Present Illness History of Present Illness: CC: Chest pain. History of present illness: 50-year-old male h/o diabetes, hypertension, hypercholesterolemia, history of hyperactive thyroidism, status post radioactive iodine treatment, now hypothyroidism on treatment. Patient started having chest pain 1 days ago, epigastric in origin, pain was persistently noted, gradually got worse until yesterday. Last night the patient was not able to tolerate the pain, the pain was epigastric in area, radiating to the chest. Also to the left shoulder. Patient because of the worsening pain, came to the emergency room last night. In the emergency room, patient was evaluated, given nitroglycerin, pain relieved. Patient also had an episode of sweating, palpitation. He did not have any dizziness. Medical history: Hypothyroidism, hypertension, hypercholesteremia, diabetes. Allergy: History of allergic to methimazole. Family history: Father had a heart disease. Mother with uterine cancer. Siblings are healthy. SOCIAL HISTORY: Drinks socially. Nonsmoker. Current medications: Levothyroxine 137 g Losartan. Hydrochlorothiazide. Metformin Glimepiride. invokana Review of system: Denies any headache, chest tightness, shortness of breath, sweating noted. No GI symptoms. On examination: Vital signs stable. Chest good air entry. Regular heart tone, nontender abdomen. No pedal edema. Labs reviewed. Mild elevation of the CPK-MB noted. EKG nonspecific. Assessment at admission: 51-year-old male with a history of diabetes, hypertension, hypercholesteremia, hypothyroidism, status post iodine radiation treatment for hyperactive thyroidism. Now admitted with chest pain, unstable angina I advised the patient to stay, beta blockers, aspirin, antiplatelets, DVT prophylaxis. Cardiology evaluation. Patient may need angiogram. Given the high risk patient high risk for heart disease. Will follow the patient. Present on Admission - Present on Admission Any Indicators Present on Admission: No History of DVT/PE: No History of Uncontrolled Diabetes: No Urinary Catheter: No Decubitus Ulcer Present: No Past Patient History - Infectious Disease Hx of Infectious Diseases: None - Past Medical History & Family History Past Medical History?: Yes - Past Social History Smoking Status: Former Smoker - CARDIAC Hx Cardiac Disorders: Yes Hx Hypercholesterolemia: Yes Hx Hypertension: Yes - PULMONARY Hx Respiratory Disorders: No - NEUROLOGICAL Hx Neurological Disorder: No - HEENT Hx HEENT Problems: No - RENAL Hx Chronic Kidney Disease: No - ENDOCRINE/METABOLIC Hx Endocrine Disorders: Yes Hx Diabetes Mellitus Type 2: Yes Hx Hypothyroidism: Yes - HEMATOLOGICAL/ONCOLOGICAL Hx Blood Disorders: No - INTEGUMENTARY Hx Dermatological Problems: No - MUSCULOSKELETAL/RHEUMATOLOGICAL Hx Musculoskeletal Disorders: No Hx Falls: No - GASTROINTESTINAL Hx Gastrointestinal Disorders: No - GENITOURINARY/GYNECOLOGICAL Hx Genitourinary Disorders: No - PSYCHIATRIC Hx Substance Use: No - SURGICAL HISTORY Hx Surgeries: Yes Hx Appendectomy: Yes Hx Coronary Stent: Yes - ANESTHESIA Hx Anesthesia: Yes Hx Anesthesia Reactions: No Hx Malignant Hyperthermia: No Meds Allergies/Adverse Reactions: Allergies Allergy/AdvReac Type Severity Reaction Status Date / Time No Known Allergies Allergy Verified 07/31/17 10:52 Results - Vital Signs Recent Vital Signs: Last Vital Signs Temp 98.7 F 07/30/17 21:13 Pulse 61 07/30/17 21:13 Resp 18 07/30/17 21:13 BP 150/63 07/30/17 21:13 Pulse Ox 97 07/30/17 21:13 - Labs Result Diagrams: 07/31/17 06:14 07/30/17 15:49 Labs: Laboratory Results - last 24 hr 07/30/17 07/30/17 07/30/17 15:49 15:49 15:49 WBC 8.4 RBC 4.55 Hgb 14.3 Hct 40.9 MCV 89.8 MCH 31.3 H MCHC 34.9 RDW 12.9 Plt Count 278 MPV 9.2 Neut % (Auto) 69.0 Lymph % (Auto) 20.5 [place] % (Auto) 7.4 Eos % (Auto) 2.1 Baso % (Auto) 1.0 Neut # 5.8 Lymph # 1.7 [place] # 0.6 Eos # 0.2 Baso # 0.1 PT 11.2 INR 1.0 APTT 33 Sodium 136 Potassium 4.0 Chloride 96 L Carbon Dioxide 26 Anion Gap 18 BUN 15 Creatinine 0.6 L Est GFR ( Amer) > 60 Est GFR (Non-Af Amer) > 60 Random Glucose 141 H Calcium 9.7 Total Bilirubin 0.7 AST 28 ALT 28 Alkaline Phosphatase 63 Total Creatine Kinase 73 CK-MB (Mass) 0.81 Troponin I, Quant < 0.0120 Total Protein 7.6 Albumin 4.7 Globulin 2.9 Albumin/Globulin Ratio 1.6 Blood Type Antibody Screen 07/30/17 17:00 WBC RBC Hgb Hct MCV MCH MCHC RDW Plt Count MPV Neut % (Auto) Lymph % (Auto) [place] % (Auto) Eos % (Auto) Baso % (Auto) Neut # Lymph # [place] # Eos # Baso # PT INR APTT Sodium Potassium Chloride Carbon Dioxide Anion Gap BUN Creatinine Est GFR ( Amer) Est GFR (Non-Af Amer) Random Glucose Calcium Total Bilirubin AST ALT Alkaline Phosphatase Total Creatine Kinase CK-MB (Mass) Troponin I, Quant Total Protein Albumin Globulin Albumin/Globulin Ratio Blood Type A NEGATIVE Antibody Screen Negative
[2017-07-31 06:24] LABS: HEMATOCRIT 39.2 % (35.0-51.0); MEAN CELL VOLUME 88.4 fL (80.0-94.0); MEAN CORPUSCULAR HEMOGLOBIN 31.3 pg (27.0-31.0); MEAN CORPUSCULAR HGB CONC 35.4 g/dL (33.0-37.0); MEAN PLATELET VOLUME 8.9 fL (7.2-11.7); RED CELL DISTRIBUTION WIDTH 12.8 % (11.5-14.5); WHITE BLOOD COUNT 9.1 K/uL (4.8-10.8)
[2017-07-31] MEDS ORDERED: LOSARTAN HCTZ PO SCH (10:00)
--- NOTE | 2017-07-31 14:58 | CP.PCM.PN ---
Subjective - Date & Time of Evaluation Date of Evaluation: 07/31/17 Time of Evaluation: 14:56 - Subjective Subjective: Cardiology progress note for Dr. Venegas Patient seen and examined this morning and prior to PCI. Patient currently asymptomatic, denies dyspnea or chest pain. Patient is s/p RCA and left circumflex EILEEN on 07/17/17. Patient to have PCI this afternoon for LAD lesion. Objective - Vital Signs/Intake and Output Vital Signs (last 24 hours): Temp Pulse Resp BP Pulse Ox 98.3 F 79 20 138/82 99 07/31/17 11:09 07/31/17 11:09 07/31/17 11:09 07/31/17 11:09 07/31/17 11:09 Intake and Output: 07/31/17 07/31/17 06:59 18:59 Intake Total 120 Balance 120 - Medications Medications: Current Medications Aspirin (Ecotrin) 81 mg PO DAILY [facility] Last Admin: 07/31/17 09:15 Dose: 81 mg Clopidogrel Bisulfate (Plavix) 75 mg PO DAILY [facility] Last Admin: 07/31/17 09:15 Dose: 75 mg Glimepiride (Amaryl) 1 mg PO DAILY [facility] Last Admin: 07/31/17 09:16 Dose: Not Given Hydrochlorothiazide (Microzide) 12.5 mg PO DAILY [facility] Last Admin: 07/31/17 09:15 Dose: Not Given Levothyroxine Sodium (Levothroid) 137 mcg PO DAILY@0630 [facility] Last Admin: 07/31/17 05:59 Dose: 137 mcg Losartan Potassium (Cozaar) 50 mg PO DAILY [facility] Last Admin: 07/31/17 09:15 Dose: 50 mg Metoprolol Tartrate (Lopressor) 25 mg PO BID [facility] Last Admin: 07/31/17 09:15 Dose: Not Given Rosuvastatin Calcium (Crestor) 40 mg PO HS [facility] - Labs Labs: 07/31/17 06:14 07/30/17 15:49 PT 11.2 SECONDS (9.7-12.2) 07/30/17 15:49 INR 1.0 07/30/17 15:49 APTT 33 SECONDS (21-34) 07/30/17 15:49
--- NOTE | 2017-07-31 16:08 | CP.PCM.PN ---
Subjective - Date & Time of Evaluation Date of Evaluation: 07/31/17 Time of Evaluation: 16:06 - Subjective Subjective: Patient s/p LAD stent (EILEEN) OOB to chair after 8pm today NS 70cc/Hr for 12 hours Resume diet Plavix 75 daily for 1 year [id number], Statins and b blockers for life Objective - Vital Signs/Intake and Output Vital Signs (last 24 hours): Temp Pulse Resp BP Pulse Ox 98.3 F 79 20 138/82 99 07/31/17 11:09 07/31/17 11:09 07/31/17 11:09 07/31/17 11:09 07/31/17 11:09 Intake and Output: 07/31/17 07/31/17 06:59 18:59 Intake Total 120 Balance 120 - Medications Medications: Current Medications Aspirin (Ecotrin) 81 mg PO DAILY [facility] Last Admin: 07/31/17 09:15 Dose: 81 mg Clopidogrel Bisulfate (Plavix) 75 mg PO DAILY [facility] Last Admin: 07/31/17 09:15 Dose: 75 mg Glimepiride (Amaryl) 1 mg PO DAILY [facility] Last Admin: 07/31/17 09:16 Dose: Not Given Hydrochlorothiazide (Microzide) 12.5 mg PO DAILY [facility] Last Admin: 07/31/17 09:15 Dose: Not Given Levothyroxine Sodium (Levothroid) 137 mcg PO DAILY@0630 [facility] Last Admin: 07/31/17 05:59 Dose: 137 mcg Losartan Potassium (Cozaar) 50 mg PO DAILY [facility] Last Admin: 07/31/17 09:15 Dose: 50 mg Metoprolol Tartrate (Lopressor) 25 mg PO BID [facility] Last Admin: 07/31/17 09:15 Dose: Not Given Rosuvastatin Calcium (Crestor) 40 mg PO HS [facility] - Labs Labs: 07/31/17 06:14 07/30/17 15:49 PT 11.2 SECONDS (9.7-12.2) 07/30/17 15:49 INR 1.0 07/30/17 15:49 APTT 33 SECONDS (21-34) 07/30/17 15:49
--- NOTE | 2017-07-31 17:42 | CP.PCM.PN ---
Subjective - Date & Time of Evaluation Date of Evaluation: 07/31/17 Time of Evaluation: 17:42 - Subjective Subjective: Patient today underwent angiogram, and biliary stenting. Patient is currently in the hospital at [facility], The labs with the patient in the intensive care unit today. Vital signs are stable. Will continue the antiplatelets, beta carlin. Possible discharge plan tomorrow Objective - Vital Signs/Intake and Output Vital Signs (last 24 hours): Temp Pulse Resp BP Pulse Ox 98.3 F 79 20 138/82 99 07/31/17 11:09 07/31/17 11:09 07/31/17 11:09 07/31/17 11:09 07/31/17 11:09 Intake and Output: 07/31/17 07/31/17 06:59 18:59 Intake Total 120 Balance 120 - Medications Medications: Current Medications Acetaminophen (Tylenol 325mg Tab) 650 mg PO Q6 PRN PRN Reason: Pain, Mild (1-3) Aspirin (Ecotrin) 81 mg PO DAILY [facility] Last Admin: 07/31/17 09:15 Dose: 81 mg Clopidogrel Bisulfate (Plavix) 75 mg PO DAILY [facility] Last Admin: 07/31/17 09:15 Dose: 75 mg Glimepiride (Amaryl) 1 mg PO DAILY [facility] Last Admin: 07/31/17 09:16 Dose: Not Given Hydrochlorothiazide (Microzide) 12.5 mg PO DAILY [facility] Last Admin: 07/31/17 09:15 Dose: Not Given Sodium Chloride (Sodium Chloride 0.9%) 1,000 mls @ 70 mls/hr IV .[id number] [facility] Stop: 08/01/17 23:59 Levothyroxine Sodium (Levothroid) 137 mcg PO DAILY@0630 [facility] Last Admin: 07/31/17 05:59 Dose: 137 mcg Losartan Potassium (Cozaar) 50 mg PO DAILY [facility] Last Admin: 07/31/17 09:15 Dose: 50 mg Metoprolol Tartrate (Lopressor) 25 mg PO BID [facility] Last Admin: 07/31/17 09:15 Dose: Not Given Rosuvastatin Calcium (Crestor) 40 mg PO HS [facility] - Labs Labs: 07/31/17 06:14 07/30/17 15:49 PT 11.2 SECONDS (9.7-12.2) 07/30/17 15:49 INR 1.0 07/30/17 15:49 APTT 33 SECONDS (21-34) 07/30/17 15:49
[2017-07-31] MEDS: Sodium Chloride 0.9% 1,000 ML IV SCH ×2 (19:31→22:00)
[2017-08-01 06:29] LABS: HEMATOCRIT 37.3 % (35.0-51.0); MEAN CELL VOLUME 90.3 fL (80.0-94.0); MEAN CORPUSCULAR HEMOGLOBIN 31.2 pg (27.0-31.0); MEAN CORPUSCULAR HGB CONC 34.6 g/dL (33.0-37.0); MEAN PLATELET VOLUME 8.9 fL (7.2-11.7); RED CELL DISTRIBUTION WIDTH 12.6 % (11.5-14.5); WHITE BLOOD COUNT 7.9 K/uL (4.8-10.8)
[2017-08-01] MEDS: Sodium Chloride 0.9% 1,000 ML IV SCH (06:32)
[2017-08-01 06:44] LABS: CHLORIDE 100 mmol/L (98-107); SODIUM 138 mmol/L (132-148)
[2017-08-01 06:45] LABS: POTASSIUM 3.4 mmol/L (3.6-5.2)
[2017-08-01 06:47] LABS: GFR AFRICAN-AMERICAN > 60
[2017-08-01 06:48] LABS: BLOOD UREA NITROGEN 10 mg/dL (9-20); CALCIUM 8.7 mg/dl (8.6-10.4); CARBON DIOXIDE 26 mmol/L (22-30); GLUCOSE,RANDOM 152 mg/dL (75-110)
[2017-08-01 12:48] VITALS: BP 137/84; RESP 14; O2SAT 97
[2017-08-01 16:22] VITALS: PULSE 62; TEMP 98.6
--- NOTE | 2017-08-01 17:20 | CP.PCM.PN ---
<Sia Cheung DO - Last Filed: 08/01/17 17:17> Subjective - Date & Time of Evaluation Date of Evaluation: 08/01/17 Time of Evaluation: 10:30 - Subjective Subjective: Cardiology progress note for Dr. Venegas Patient seen and examined. Patient states he feels well and is ambulating without pain at cath site. Patient reports good appetite. Denies chest pain or dyspnea. Objective - Vital Signs/Intake and Output Vital Signs (last 24 hours): Temp Pulse Resp BP Pulse Ox 98.6 F 62 14 137/84 97 08/01/17 16:15 08/01/17 16:15 08/01/17 12:00 08/01/17 11:44 08/01/17 12:00 Intake and Output: 08/01/17 08/01/17 06:59 18:59 Intake Total 1110 140 Output Total 1300 Balance 1110 -1160 - Medications Medications: Current Medications Acetaminophen (Tylenol 325mg Tab) 650 mg PO Q6 PRN PRN Reason: Pain, Mild (1-3) Aspirin (Ecotrin) 81 mg PO DAILY [facility] Last Admin: 08/01/17 10:40 Dose: 81 mg Clopidogrel Bisulfate (Plavix) 75 mg PO DAILY [facility] Last Admin: 08/01/17 10:40 Dose: 75 mg Glimepiride (Amaryl) 1 mg PO DAILY [facility] Last Admin: 08/01/17 10:40 Dose: 1 mg Hydrochlorothiazide (Microzide) 12.5 mg PO DAILY [facility] Last Admin: 08/01/17 10:40 Dose: 12.5 mg Sodium Chloride (Sodium Chloride 0.9%) 1,000 mls @ 70 mls/hr IV .[id number] [facility] Stop: 08/01/17 23:59 Last Admin: 08/01/17 06:32 Dose: Not Given Levothyroxine Sodium (Levothroid) 137 mcg PO DAILY@0630 [facility] Last Admin: 08/01/17 06:10 Dose: 137 mcg Losartan Potassium (Cozaar) 50 mg PO DAILY [facility] Last Admin: 08/01/17 10:40 Dose: 50 mg Metoprolol Tartrate (Lopressor) 25 mg PO BID [facility] Last Admin: 08/01/17 10:40 Dose: 25 mg Rosuvastatin Calcium (Crestor) 40 mg PO HS [facility] Last Admin: 07/31/17 22:47 Dose: 40 mg - Labs Labs: 08/01/17 06:20 08/01/17 06:17 PT 11.2 SECONDS (9.7-12.2) 07/30/17 15:49 INR 1.0 07/30/17 15:49 APTT 33 SECONDS (21-34) 07/30/17 15:49 - Constitutional Appears: Non-toxic, No Acute Distress - Eye Exam Eye Exam: EOMI - ENT Exam ENT Exam: Mucous Membranes Moist - Respiratory Exam Respiratory Exam: Clear to Ausculation Bilateral, NORMAL BREATHING PATTERN - Cardiovascular Exam Cardiovascular Exam: +S1, +S2 - GI/Abdominal Exam GI & Abdominal Exam: Soft, Normal Bowel Sounds. absent: Tenderness - Extremities Exam Additional comments: left groin cath site clean, dressing dry, area soft, no hematoma formation - Neurological Exam Neurological Exam: Alert, Awake - Psychiatric Exam Psychiatric exam: Normal Affect - Skin Skin Exam: Dry, Warm Assessment and Plan - Assessment and Plan (Free Text) Assessment: 51 year old male with triple vessel disease, s/p LAD stent 07/31/17 Triple vessel disease Patient s/p stents in RCA and Left circumflex 07/17/17 s/p LAD stent 07/31/17 Patient can be discharged home, has appointment to follow up with Dr. Venegas on Sunday Patient to continue aspirin and metoprolol Plavix to be continued for one year Plan as per Dr. Venegas <Kole Venegas - Last Filed: 08/01/17 23:50> Objective - Vital Signs/Intake and Output Vital Signs (last 24 hours): Temp Pulse Resp BP Pulse Ox 98.6 F 62 14 137/84 97 08/01/17 16:15 08/01/17 16:15 08/01/17 12:00 08/01/17 11:44 08/01/17 12:00 Intake and Output: 08/01/17 08/02/17 18:59 06:59 Intake Total 140 Output Total 1300 Balance -1160 - Labs Labs: 08/01/17 06:20 08/01/17 06:17 PT 11.2 SECONDS (9.7-12.2) 07/30/17 15:49 INR 1.0 07/30/17 15:49 APTT 33 SECONDS (21-34) 07/30/17 15:49 Assessment and Plan - Assessment and Plan (Free Text) Assessment: Patient seen and evaluated with the medical technologist generalist Plan of care as documented
== END 2017-08-01 18:08 | disposition home or self-care (01) ==
LOC: C.ER 14:29 → C.9E 15:01 → C.9I 21:06
PROVIDERS: ADMIT Internal Medicine; ATTEND Internal Medicine
DX: I25.10 Atherosclerotic heart disease of native coronary artery without angina pectoris (principal); I10 Essential (primary) hypertension; E78.5 Hyperlipidemia, unspecified; E03.9 Hypothyroidism, unspecified; Z95.5 Presence of coronary angioplasty implant and graft; Z87.891 Personal history of nicotine dependence
CPT/HCPCS: 36415; 71020; 80048; 80053; 82948; 84484; 85025; 85027; 85610; 85730; 86850; 86900; 87070; 87081; 99285; G0378; J7040

== ENCOUNTER 2019-01-29 07:44 | Outpatient (CLI) | payer OTHER | END 2019-01-29 07:45 | disposition home or self-care (01) | LOC: C.LAB 07:44 | DX: E78.00 Pure hypercholesterolemia, unspecified (principal); E11.9 Type 2 diabetes mellitus without complications; I10 Essential (primary) hypertension; I25.9 Chronic ischemic heart disease, unspecified ==